=== PATIENT | female | born 1975 | race Two or more races ===

== ENCOUNTER 2020-05-17 23:53 | Emergency (ER) | payer OTHER, SELFPAY ==
[2020-05-18 00:25] VITALS: BP 170/80; PULSE 58; RESP 17; TEMP 36.8; O2SAT 98; BMI 33.5
--- NOTE | 2020-05-18 00:49 | ED.URI ---
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 She denies any chest pain or shortness of breath. No fever. No GI symptoms. MD elicited complaint: cough Onset (ago): hour(s) Severity: mild Able to tolerate fluids by mouth: Yes Relieving factors: nothing Treatments prior to arrival: none Related Data Previous Rx's Medication Instructions Recorded sertraline 50 mg tablet 50 mg PO DAILY 90 Days #90 tab 04/19/20 Allergies Allergy/AdvReac Type Severity Reaction Status Date / Time No Known Allergies Allergy Unverified 03/16/20 15:17 Review of Systems Review of Systems: Constitutional: No Weight loss, No Fever, No Chills, No Night Sweats, No Fatigue, No Malaise ENT/Mouth: No Hearing loss, No Ear Pain, No Nasal Congestion, No Sinus Pain, No Hoarseness Eyes: No Eye Pain, No Swelling, No Redness, No Foreign Body, No Discharge, No Vision Changes Cardiovascular: No Chest Pain, No SOB, No Dyspnea on Exertion, No Orthopnea, No Edema, No Palpitations Respiratory: + Cough, No Sputum, No Wheezing, No Smoke Exposure, No Dyspnea Musculoskeletal: No joint pain, No Myalgias, No Joint Swelling Skin: No Skin Lesions, No rash Neuro: No Weakness, No Numbness, No Paresthesias Heme/Lymph: No Bruising, No Bleeding,No Lymphadenopathy Endocrine: No Polyuria, No Polydipsia, No Temperature Intolerance Yes all other systems are reviewed and are negative [facility] Past Medical History Attestation statement: The following information was validated with the patient. Surgical History (Updated 05/01/20 @ 15:04 by Ly Stewart MA) History of loop electrical excision procedure (LEEP) Hx of cholecystectomy Hx of tubal ligation Family History Family History (Updated 05/01/20 @ 15:08 by Ly Stewart MA) Father Type 2 diabetes mellitus Mother Diabetes Social History Social History (Updated 05/02/20 @ 14:48 by Pedrito Guzman) Smoking Status: Former smoker Advance Directives: No Advance Directives Information Provided: No Physical Exam Vital Signs: Vital Signs: Last Vital Signs Temp 98.3 F 05/18/20 00:25 Pulse 58 05/18/20 00:25 Resp 17 05/18/20 00:25 BP 170/80 H 05/18/20 00:25 Pulse Ox 98 05/18/20 00:25 Body Mass Index 33.5 Reviewed Const: General: cooperative and healthy appearing; No acute distress or intoxicated appearing Nutritional Appearance: average body habitus Orientation/consciousness: patient oriented x3 HENMT: Head: Yes normal to inspection Ears: hearing grossly normal bilaterally Eyes: General: appearance normal, both eyes and all related structures Visual [place]: normal visual mancilla by confrontation Neck: Neck: Yes normal visual inspection Chest: Chest palpation & inspection: normal inspection of the chest Resp: Effort & Inspection: normal respiratory effort Cardio: Jugular venous distension: no JVD Skin: General skin exam: no rashes or lesions noted Neuro: General: patient oriented x3 Extrem: General: Yes normal to inspection Discharge Plan Discharge Clinical Impression: Bronchitis Patient Disposition: Home, Self-Care Instructions: Upper Respiratory Infection (ED), Acute Cough (ED) Additional Instructions: drink plenty of fluids Take medication prescribed Self-isolation Social distancing Your COVID test may take up to 3 days result we will call with results even if negative or positive Thank you Prescriptions: No Action sertraline 50 mg tablet 50 mg PO DAILY 90 Days Qty: 90 RF: 3 Referrals: Rubina Calix MD [Primary Care Provider] - 1 week ( phone visit) Stand Alone Forms: Work/School Release
== END 2020-05-18 01:51 | disposition home or self-care (01) ==
PROVIDERS: Nurse Practitioner Primary Care; Emergency Provider Student in an Organized Health Care Education/Training Program; PCP Internal Medicine
DX: J20.9 Acute bronchitis, unspecified (principal); R05 Cough; F41.1 Generalized anxiety disorder; F43.0 Acute stress reaction; Z20.828 Contact with and (suspected) exposure to other viral communicable diseases; Z87.891 Personal history of nicotine dependence
CPT/HCPCS: 99283; U0003

== ENCOUNTER 2020-06-17 07:37 | Outpatient (REF) | payer OTHER, SELFPAY ==
[2020-06-17 08:32] LABS: Alanine Aminotransferase 21 U/L (0-31); Albumin Level 4.4 g/dL (3.5-5.0); Alkaline Phosphatase 78 U/L (39-117); Anion Gap 9 (12-20); Aspartate Amino Transferase 22 U/L (5-31); Bilirubin Total 0.4 mg/dL (0.0-1.0); Blood Urea Nitrogen 12 mg/dL (9-16); Calcium 9.4 mg/dL (8.4-10.2); Carbon Dioxide 29 mmol/L (22-29); Chloride 103 mmol/L (96-108); Cholesterol 179 mg/dL; Estimated Glomerular Filt Rate > 60; Glucose Fasting 82 mg/dL (60-99); HDL Cholesterol 49 mg/dL; LDL Cholesterol Calculated 105 mg/dl; Sodium 137 mmol/L (135-145); Total Protein 7.3 g/dL (6.5-8.0); Triglycerides 128 mg/dL
[2020-06-17 08:51] LABS: Vitamin D 25-OH Total 36.6 ng/mL (>30)
== END 2020-06-17 07:38 | disposition home or self-care (01) ==
LOC: HO.LAB 07:37
PROVIDERS: PCP Internal Medicine; Visit Provider Internal Medicine
DX: E66.09 Other obesity due to excess calories (principal); E55.9 Vitamin D deficiency, unspecified
CPT/HCPCS: 80053; 80061; 82306

== ENCOUNTER 2020-06-29 13:02 | Outpatient (REF) | payer OTHER, SELFPAY ==
--- NOTE | 2020-06-29 | MM_ITS ---
EXAMINATION: MM SCREENING DIGITAL BREAST TOMOSYNTHESIS, BILATERAL CLINICAL INFORMATION: Screening. Asymptomatic. Family history breast cancer, aunt. The lifetime risk of breast cancer based on the Tyrer-Cuzick Model is 12%. COMPARISON: Mammography: 02/23/2019 (baseline); targeted left breast ultrasound 02/26/2019 TECHNIQUE: Digital breast tomosynthesis is performed in both the craniocaudal and mediolateral oblique views along with computer-aided detection (CAD). Synthesized 2D images are generated from the tomosynthesis. FINDINGS: There are scattered areas of fibroglandular density (ACR BI-RADS breast composition Category b). The right breast is unremarkable. There is no interval mass or architectural abnormality. Neither breast shows interval abnormal calcifications. There are regional benign appearing round coarse calcifications again present central left breast. The bilateral axilla and skin contours are unremarkable. The cyst medial left breast is slightly larger. There is also an adjacent asymmetric density in the posterior medial left breast, more conspicuous on current study. Patient will be recalled for additional imaging. MM/MM tomosynthesis screening BI IMPRESSION: 1. Left: Asymmetric density posterior medial left breast, more conspicuous on current study. Adjacent cyst slightly larger. 2. Right: No mammographic evidence of malignancy. ASSESSMENT: BI-RADS 0: Incomplete - Need Additional Imaging Evaluation RECOMMENDATION: 1. Additional views of the left breast (rolled CC x2-medial; spot MLO). 2. Targeted ultrasound left breast. 3. Radiology department staff will contact the patient for additional imaging. This patient's information was entered into a reminder system with a target due date for their next mammogram.
== END 2020-06-29 13:03 | disposition home or self-care (01) ==
LOC: HO.MAMMO 13:02
PROVIDERS: PCP Internal Medicine; Visit Provider Internal Medicine
DX: Z12.31 Encounter for screening mammogram for malignant neoplasm of breast (principal)
CPT/HCPCS: 77063; 77067

== ENCOUNTER → 2020-07-13 07:59 | Outpatient (BNVA) | payer OTHER, SELFPAY | PROVIDERS: PCP Internal Medicine; Visit Provider Internal Medicine | DX: Z76.89 Persons encountering health services in other specified circumstances (principal) ==

== ENCOUNTER 2020-07-20 15:01 | Outpatient (REF) | payer OTHER, SELFPAY ==
--- NOTE | 2020-07-20 15:07 | US_ITS ---
EXAMINATION: US THYROID CLINICAL INFORMATION: Nontoxic multinodular goiter. Status post partial thyroidectomy. COMPARISON: None TECHNIQUE: Linear transducer peralta-scale and color Doppler examination with attention to the region of the thyroid. FINDINGS: SIZE: Measurements of the thyroid lobes and nodules are given in sagittal, anteroposterior and transverse dimensions respectively. Right Thyroid Lobe: 5.0 x 1.2 x 1.5 cm, volume 4.5 mL. Previous measurements 4.8 x 1.3 x 1.1 and 3.6 mL volume. Parenchyma: The gland echotexture is homogeneous. Thyroid vascularity is normal. Left Thyroid Lobe: 2.7 x 0.7 x 2.0 cm, volume 1.8 mL. Parenchyma: The gland echotexture is homogeneous. Thyroid vascularity is normal. Previously measured 9.8 x 4.3 x 7.4 cm and volume 1.6 mL. Isthmus: 0.3 cm in maximum AP dimension. Previously measured 0.5 cm. RIGHT THYROID LOBE: Solitary nodule midpole measuring 0.8 x 0.5 x 0.6 cm. It is hypoechoic, smoothly marginated with hypoechoic rind and peripheral flow. ISTHMUS: No nodules. LEFT THYROID LOBE: No nodules. CERVICAL LYMPH NODE EVALUATION: Right neck: 1. Level 1B: Lymph node measures 1.1 x 0.6 x 1.2 cm. It has normal echotexture. 2. Level 1B: Lymph node measures 0.9 x 0.6 x 0.8 cm. It has normal echotexture. 3. Level 1B: Lymph node measures 2.0 x 0.8 x 1.4 cm. There is normal echotexture. 4. Level 1A: Lymph node measures 0.7 x 0.4 x 0.7 cm. It has normal echotexture. Left neck: 1. Level 1B: Lymph node measures 1.8 x 0.9 x 1.0 cm. It has a normal echotexture. 2. Level 1B: Lymph node measures 1.1 x 0.4 x 0.7 cm. It has a normal echotexture. 3. Level 1B: Lymph node measures 1.3 x 0.4 x 1.2 cm. It has a normal echotexture. 4. Level 5A: Lymph node measures 0.6 x 0.4 x 0.7 cm. It has a normal echotexture. US/US thyroid IMPRESSION: Solitary nodule right lobe, subcentimeter and nonsuspicious. No additional nodules seen. Thyroid gland size within normal limits. No abnormal neck lymph nodes seen.
== END 2020-07-20 15:02 | disposition home or self-care (01) ==
LOC: HO.US 15:01
PROVIDERS: Visit Provider Internal Medicine
DX: E04.2 Nontoxic multinodular goiter (principal)
CPT/HCPCS: 76536

== ENCOUNTER → 2020-09-14 14:47 | Outpatient (BNVA) | payer OTHER, SELFPAY | PROVIDERS: PCP Internal Medicine; Visit Provider Internal Medicine ==

== ENCOUNTER 2020-09-18 12:52 | Outpatient (REF) | payer OTHER, SELFPAY ==
--- NOTE | ~2020-09-18 | MM_ITS ---
EXAMINATION: MM DIAGNOSTIC DIGITAL BREAST TOMOSYNTHESIS, LEFT US DIAGNOSTIC ULTRASOUND BREAST, LEFT CLINICAL INFORMATION: Recall from screening for asymmetric density posterior medial breast questionably more conspicuous when compared with baseline. History fibrocystic change. COMPARISON: Mammography: Mammography 06/29/2020, 02/23/2019, ultrasound left breast 02/26/2019. TECHNIQUE: Digital breast tomosynthesis is performed. 2D images are generated from the tomosynthesis. The following views are obtained: 3-D rolled CC x2, 3-D spot CC, 3-D spot MLO x2. Ultrasound left breast is targeted to the upper inner breast. Grayscale imaging and color Doppler are performed without and with harmonics. FINDINGS: There are scattered areas of fibroglandular density (ACR BI-RADS breast composition Category b). The additional views show asymmetric fibroglandular densities posterior medial breast similar to the prior studies. There is no interval new or developing density or architectural abnormality. Ultrasound demonstrates 2 simple cysts in the area of interest, the larger 0.8 x 0.5 cm and the smaller 0.6 x 0.5 cm. These correspond to the fibroglandular densities noted on mammography. There is no solid mass or architectural abnormality or focal duct ectasia. No abnormal color flow. Results are discussed with the patient at time of visit. MM/MM tomosynthesis added views L IMPRESSION: Additional views left breast show no significant changes. Targeted ultrasound shows 2 adjacent simple cyst, largest 0.8 cm. ASSESSMENT: BI-RADS 2: Benign RECOMMENDATION: Routine annual mammography screening. This patient's information was entered into a reminder system with a target due date for their next mammogram.
== END 2020-09-18 12:53 | disposition home or self-care (01) ==
LOC: HO.MAMMO 12:52
PROVIDERS: Visit Provider Internal Medicine
DX: R92.2 Inconclusive mammogram (principal)
CPT/HCPCS: 76642; 77061; 77065

== ENCOUNTER 2021-02-17 15:02 | Emergency (ER) | payer OTHER, SELFPAY ==
--- NOTE | ~2021-02-17 | US_ITS ---
EXAMINATION: ULTRASOUND OF THE PELVIS CLINICAL INFORMATION: Abnormal bleeding and pain. COMPARISON: None TECHNIQUE: Transabdominal and transvaginal pelvic ultrasound. A transvaginal study was performed in addition to the transabdominal study which did not yield an adequate examination of the uterus and ovaries due to superimposed distended gas-filled loops of bowel. FINDINGS: Uterus: The uterus is retroverted and retroflexed and normal in size, measuring 9.1 x 5.4 x 4.7 cm. There is a 1.4 x 1.4 x 1.0 cm hypoechoic mass in the right side of the uterine body, consistent with a small uterine fibroid. The endometrial stripe is diffusely echogenic and thickened, measuring 1.8 cm in thickness. Several tiny internal cystic spaces are seen, likely representing dilated endometrial glands. No focal myometrial mass is seen. The cervical length is qualitatively within normal limits. Small nabothian cysts are seen within the cervix. Ovaries: The ovaries bilaterally are visualized and appear normal, with the right ovary measuring 4.0 x 3.6 x 3.0 cm (22.6 mL volume) and the left ovary measuring 3.0 x 1.6 x 1.8 cm (4.5 mL volume). There is a lobulated hypoechoic cystic mass with low-level internal echoes in the right adnexa, measuring 5.5 x 2.8 x 2.3 cm, partially obscured by adjacent bowel gas. This may represent a complex cystic mass in the right ovary versus an adjacent hydrosalpinx. Normal arterial and venous flow to the right ovary is documented with color Doppler and spectral Doppler. The left ovary appears unremarkable with small follicles noted. With color Doppler imaging, normal flow is seen though no spectral Doppler assessment was made. Other: No significant free fluid collection seen. US/US pelvic and transvaginal IMPRESSION: 1. Diffusely echogenic and thickened endometrium is seen with multiple small cystic spaces, likely representing endometrial hyperplasia/neoplasia with dilated endometrial glands. Close clinical correlation and EQUIPMENT CLEANER follow-up is recommended for further evaluation and management. 2. Incompletely characterized and visualized complex cystic collection in the right adnexa is seen, possibly a complex ovarian cystic mass versus a hydrosalpinx. Would recommend reassessment with transvaginal pelvic ultrasound in 4-6 weeks and if findings persist and remain incompletely characterized, further evaluation with MRI scan of the pelvis. 3. Left ovary unremarkable. 4. Small uterine fibroid.
[2021-02-17 15:18] VITALS: BP 147/82; PULSE 70; RESP 16; TEMP 36.6; O2SAT 98; BMI 34.3
[2021-02-17 15:34] VITALS: BP 150/85; PULSE 75; RESP 15; O2SAT 98
--- NOTE | 2021-02-17 16:12 | ED_ITS ---
HPI - Female Genitourinary General Chief complaint: Vaginal Bleeding Stated complaint: vag bleeding Time Seen by Provider: 02/17/21 16:11 Source: patient Mode of arrival: ambulatory Limitations: no limitations History of Present Illness HPI Narrative: 45-year-old female presents with 2 weeks of vaginal bleeding with large clots and dizziness States this is an abnormal cycle for her, she missed her period last month. She does not report any vaginal pain or risk for sexually transmitted infection. She does not report any chest pain or pressure, palpitations, shortness of breath, abdominal pain, abdominal distention, dysuria, nausea, vomiting, diarrhea, constipation, or edema. MD elicited complaint: vaginal bleeding Onset (ago): week(s) (2) Location of symptoms: vaginal Severity: moderate Vaginal bleeding: moderate, heavy, dark red and clots Relieving factors: none Treatment prior to arrival: none Sexual activity: Yes Patient : No Related Data Previous Rx's Medication Instructions Recorded sertraline 50 mg tablet 50 mg PO DAILY 90 Days #90 tab 04/19/20 albuterol sulfate 90 mcg/actuation 2 puff INHALATION Q4-6H PRN #18 g 05/18/20 aerosol inhaler meclizine 25 mg tablet 25 mg PO TID #90 tab 08/11/20 cholecalciferol (vitamin D3) 50 50 mcg PO DAILY 30 Days #30 tab 01/03/21 mcg (2,000 unit) tablet Allergies Allergy/AdvReac Type Severity Reaction Status Date / Time No Known Allergies Allergy Verified 09/14/20 16:01 Review of Systems Review of Systems: Constitutional: Positive dizziness, No Fever, No Chills ENT/Mouth: No sore throat, No Rhinorrhea Eyes: No Eye Pain, No Redness Cardiovascular: No Chest Pain, No SOB Respiratory: No Cough, No Sputum, No Wheezing Gastrointestinal: No Nausea, No Vomiting, No Diarrhea, no abdominal pain, Genitourinary: positive irregular bleeding, No Dysuria, No Urinary Frequency, no pelvic pain Musculoskeletal: No Myalgias Skin: No rash Neuro: No Weakness, No Headache Psych: No Anxiety/Panic, No Depression Heme/Lymph: No bruising, No Lymphadenopathy Endocrine: No Polyuria, No Polydipsia Yes all other systems are reviewed and are negative [facility] Past Medical History Attestation statement: The following information was validated with the patient. Source: old records reviewed Medical History Asthma Bronchiolitis Depression Family history of thyroid cancer Hypovitaminosis D Multinodular goiter Obesity Vertigo Vitamin D deficiency Surgical History History of loop electrical excision procedure (LEEP) History of thyroid surgery Hx of cholecystectomy Hx of mammogram Hx of tubal ligation Family History Family History Father Type 2 diabetes mellitus Mother Diabetes Daughter Thyroid cancer Social History Social History Alcohol intake: never Patient Tobacco Use Status: Never used Tobacco Physical Exam Vital Signs: Vital Signs: Last Vital Signs Temp 98.5 F 02/17/21 17:32 Pulse 75 02/17/21 19:16 Resp 16 02/17/21 19:16 BP 150/78 H 02/17/21 19:16 Pulse Ox 99 02/17/21 19:16 Body Mass Index 34.3 Appearance: Alert. Oriented X3. No acute distress. Eyes: Pupils equal, round and reactive to light. ENT: Pharynx normal. Neck: Normal inspection. Neck supple. CVS: Normal heart rate and rhythm. Pulses normal. Respiratory: No respiratory distress. Breath sounds normal. Abdomen: Soft and nontender. Skin: Skin warm and dry. Normal skin color. Normal skin turgor. Extremities: No lower extremity edema. Neuro: No motor deficit. No sensory deficit. : External Female Exam: normal external appearance Speculum Exam - Vagina: normal appearance of the vagina Speculum Exam - Cervix: Other cervical findings present (3 mm in diameter of salmon pink tissue in center of cervical os) Bimanual exam- vagina & uterus: normal bimanual exam Bimanual Exam- Adnexa, other: normal adnexae Course Course Course Narrative: 45-year-old female presents with 2 weeks of abnormal vaginal bleeding with large clots, accompanied by dizziness. Does not report any vaginal or pelvic pain. Did report missing her period last month but did not believe that she is or at risk for sexually transmitted infections. 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 There is a approximately 3 mm salmon pink tissue in the center of the cervical os which could possibly be secondary to LEEP procedure. Will order pelvic ultrasound this time. 6:28 p.m. tiger text discussion with Dr. Echevarria regarding transvaginal ultrasound findings. Ultrasound results discussed with patient, patient will follow-up with OBGYN in the office and will call for an appointment tomorrow. Patient verbalized understanding of and agrees to plan of care. Consultations Consultation #1: Wale Time: 18:29 MDM - Female Genitourinary Differential Diagnosis Differential diagnosis: Likely ovarian cyst, ruptured ovarian cyst and cystitis Medical Records Attestation: I reviewed the patient's medical records. Lab Data Attestation: I reviewed the patient's lab results. Result diagrams: 02/17/21 17:32 02/17/21 17:32 Labs: Lab Results 02/17/21 02/17/21 02/17/21 Range/Units 17:31 17:32 17:32 WBC 8.2 (4.8-10.8) X10*3/uL RBC 4.94 (4.20-5.50) X10*6/uL Hgb 12.0 (12.0-16.0) g/dl Hct 38.8 (37-47) % MCV 78.5 L (80-98) fL MCH 24.3 L (27.0-33.0) pg MCHC 30.9 L (31.0-35.0) g/dl RDW 15.7 (11.0-16.0) % Plt Count 329 (160-400) X10*3/uL MPV 10.0 (9.4-12.3) fL Immature Gran % (Auto) 0.4 (0.0-0.4) % Neut % (Auto) 56.8 (45-73) % Lymph % (Auto) 33.3 (20-40) % [place] % (Auto) 5.1 (2-11) % Eos % (Auto) 3.8 (0-4) % Baso % (Auto) 0.6 (0-2) % Lymph # (Auto) 2.7 (1.2-4.9) X10*3/uL [place] # (Auto) 0.4 (0.1-1.2) X10*3/uL Eos # (Auto) 0.3 (0.0-0.4) X10*3/uL Baso # (Auto) 0.1 (0.0-0.2) X10*3/uL Abs Immat Gran (auto) 0.03 (0.00-0.03) X10*3/uL Absolute Neuts (auto) 4.7 (2.0-8.3) X10*3/uL Absolute Nucleated RBC 0.000 (0.0-0.012) X10*3/uL Nucleated RBC % (auto) 0.0 (0.0-0.2) /100WBC Sodium 139 (135-145) mmol/L Potassium 4.5 (3.3-5.1) mmol/L Chloride 107 (96-108) mmol/L Carbon Dioxide 24 (22-29) mmol/L Anion Gap 13 (12-20) BUN 17 H (9-16) mg/dL Creatinine 0.70 (0.5-1.4) mg/dL Estim Creat Clear Calc 113.1 Estimated GFR > 60 Random Glucose 97 (60-115) mg/dL Calcium 9.1 (8.4-10.2) mg/dL Urine Color YELLOW Urine Appearance HAZY Urine pH 5.5 (5.0-8.0) Ur Specific [place] 1.010 (1.005-1.025) Urine Protein NEG (NEG-TRACE) MG/DL Urine Glucose (UA) NEG (NEG) MG/DL Urine Ketones NEG (NEG) MG/DL Urine Blood 3+ H (NEG) Urine Nitrite NEG (NEG) Ur Leukocyte Esterase NEG (NEG) Urine RBC 5-9 H (0) /HPF Urine WBC 0-2 (0-4) /HPF Ur Squamous Epith Cells TRACE /LPF Amorphous Sediment 3+ /LPF Urine Bacteria TRACE /LPF Urine Test (NEGATIVE) 02/17/21 Range/Units 17:32 WBC (4.8-10.8) X10*3/uL RBC (4.20-5.50) X10*6/uL Hgb (12.0-16.0) g/dl Hct (37-47) % MCV (80-98) fL MCH (27.0-33.0) pg MCHC (31.0-35.0) g/dl RDW (11.0-16.0) % Plt Count (160-400) X10*3/uL MPV (9.4-12.3) fL Immature Gran % (Auto) (0.0-0.4) % Neut % (Auto) (45-73) % Lymph % (Auto) (20-40) % [place] % (Auto) (2-11) % Eos % (Auto) (0-4) % Baso % (Auto) (0-2) % Lymph # (Auto) (1.2-4.9) X10*3/uL [place] # (Auto) (0.1-1.2) X10*3/uL Eos # (Auto) (0.0-0.4) X10*3/uL Baso # (Auto) (0.0-0.2) X10*3/uL Abs Immat Gran (auto) (0.00-0.03) X10*3/uL Absolute Neuts (auto) (2.0-8.3) X10*3/uL Absolute Nucleated RBC (0.0-0.012) X10*3/uL Nucleated RBC % (auto) (0.0-0.2) /100WBC Sodium (135-145) mmol/L Potassium (3.3-5.1) mmol/L Chloride (96-108) mmol/L Carbon Dioxide (22-29) mmol/L Anion Gap (12-20) BUN (9-16) mg/dL Creatinine (0.5-1.4) mg/dL Estim Creat Clear Calc Estimated GFR Random Glucose (60-115) mg/dL Calcium (8.4-10.2) mg/dL Urine Color Urine Appearance Urine pH (5.0-8.0) Ur Specific [place] (1.005-1.025) Urine Protein (NEG-TRACE) MG/DL Urine Glucose (UA) (NEG) MG/DL Urine Ketones (NEG) MG/DL Urine Blood (NEG) Urine Nitrite (NEG) Ur Leukocyte Esterase (NEG) Urine RBC (0) /HPF Urine WBC (0-4) /HPF Ur Squamous Epith Cells /LPF Amorphous Sediment /LPF Urine Bacteria /LPF Urine Test NEGATIVE (NEGATIVE) Imaging Data Transvaginal ultrasound: Attestation: I personally reviewed and interpreted this imaging study as follows: Radiologist's impression: EXAMINATION: ULTRASOUND OF THE PELVIS CLINICAL INFORMATION: Abnormal bleeding and pain. COMPARISON: None TECHNIQUE: Transabdominal and transvaginal pelvic ultrasound. A transvaginal study was performed in addition to the transabdominal study which did not yield an adequate examination of the uterus and ovaries due to superimposed distended gas-filled loops of bowel. FINDINGS: Uterus: The uterus is retroverted and retroflexed and normal in size, measuring 9.1 x 5.4 x 4.7 cm. There is a 1.4 x 1.4 x 1.0 cm hypoechoic mass in the right side of the uterine body, consistent with a small uterine fibroid. The endometrial stripe is diffusely echogenic and thickened, measuring 1.8 cm in thickness. Several tiny internal cystic spaces are seen, likely representing dilated endometrial glands. No focal myometrial mass is seen. The cervical length is qualitatively within normal limits. Small nabothian cysts are seen within the cervix. Ovaries: The ovaries bilaterally are visualized and appear normal, with the right ovary measuring 4.0 x 3.6 x 3.0 cm (22.6 mL volume) and the left ovary measuring 3.0 x 1.6 x 1.8 cm (4.5 mL volume). There is a lobulated hypoechoic cystic mass with low-level internal echoes in the right adnexa, measuring 5.5 x 2.8 x 2.3 cm, partially obscured by adjacent bowel gas. This may represent a complex cystic mass in the right ovary versus an adjacent hydrosalpinx. Normal arterial and venous flow to the right ovary is documented with color Doppler and spectral Doppler. The left ovary appears unremarkable with small follicles noted. With color Doppler imaging, normal flow is seen though no spectral Doppler assessment was made. Other: No significant free fluid collection seen. US/US pelvic and transvaginal IMPRESSION: ? 1. Diffusely echogenic and thickened endometrium is seen with multiple small cystic spaces, likely representing endometrial hyperplasia/neoplasia with dilated endometrial glands. Close clinical correlation and [employer] follow-up is recommended for further evaluation and management. 2. Incompletely characterized and visualized complex cystic collection in the right adnexa is seen, possibly a complex ovarian cystic mass versus a hydrosalpinx. Would recommend reassessment with transvaginal pelvic ultrasound in 4-6 weeks and if findings persist and remain incompletely characterized, further evaluation with MRI scan of the pelvis. 3. Left ovary unremarkable. 4. Small uterine fibroid. Discharge Plan Discharge Clinical Impression: Vaginal bleeding, Complex cyst of uterine adnexa, Endometrial hyperplasia Patient Disposition: Home, Self-Care Instructions: Dysfunctional Uterine Bleeding (ED), Ovarian Cyst (ED) Additional Instructions: You were evaluated for at abnormal vaginal bleeding. I did discuss your pelvic ultrasound findings in detail with you. Please follow-up with Dr Echevarria tomorrow. Please call and request an appointment. I did discuss your case with him and he reviewed your ultrasound results. If heavy bleeding persists, or you have any concerning findings please return to the emergency department immediately. Thank you for choosing this emergency department for evaluation. Please follow-up with primary care physician as needed. Return to the emergency dep artment for any new, concerning, or worsening symptoms. Prescriptions: No Action sertraline 50 mg tablet 50 mg PO DAILY 90 Days Qty: 90 RF: 3 meclizine 25 mg tablet 25 mg PO TID Qty: 90 RF: 0 cholecalciferol (vitamin D3) 50 mcg (2,000 unit) tablet 50 mcg PO DAILY 30 Days Qty: 30 RF: 11 albuterol sulfate 90 mcg/actuation HFA aerosol inhaler 2 puff inhalation Q4-6H PRN (Reason: shortness of breath or wheezing) Qty: 18 RF: 1 Referrals: Josue Echevarria MD [Physician] - 2 days (Abnormal pelvic ultrasound, abnormal vaginal bleeding) Interventions: ED Discharge Assessment Last Done: 02/17/21 19:17 Discharge Date/Time: 02/17/21 19:18
[2021-02-17 17:32] VITALS: BP 125/77; PULSE 67; RESP 12; TEMP 36.9; O2SAT 97
[2021-02-17 17:39] LABS: MANUAL DIFF FLAG NO
[2021-02-17 17:43] LABS: Glucose Urine UA NEG (NEG); Leukocyte Esterase Urine NEG (NEG); Nitrite Urine NEG (NEG); PH 5.5 (5.0-8.0); UACC Culture Trigger NO; Urine Blood 3+ (NEG); Urine Ketones NEG (NEG); Urine Protein NEG (NEG-TRACE)
[2021-02-17 17:45] LABS: Appearance Urine HAZY; Color Urine YELLOW
[2021-02-17 17:48] LABS: Basophils Absolute Auto 0.1 X10*3/uL (0.0-0.2); Basophils Percent Auto 0.6 % (0-2); Eosinophils Absolute Auto 0.3 X10*3/uL (0.0-0.4); Eosinophils Percent Auto 3.8 % (0-4); Hematocrit 38.8 % (37-47); Imm Gran Abs Auto 0.03 X10*3/uL (0.00-0.03); Imm Gran Pct Auto 0.4 % (0.0-0.4); Lymphocytes Absolute Auto 2.7 X10*3/uL (1.2-4.9); Lymphocytes Percent Auto 33.3 % (20-40); Mean Corpuscular HGB Conc 30.9 g/dl (31.0-35.0); Mean Corpuscular Hemoglobin 24.3 pg (27.0-33.0); Mean Corpuscular Volume 78.5 fL (80-98); Monocytes Absolute Auto 0.4 X10*3/uL (0.1-1.2); Monocytes Percent Auto 5.1 % (2-11); Neutrophils Absolute Auto 4.7 X10*3/uL (2.0-8.3); Neutrophils Percent Auto 56.8 % (45-73); Platelet Count 329 X10*3/uL (160-400); Red Blood Count 4.94 X10*6/uL (4.20-5.50); Red Cell Distribution Width 15.7 % (11.0-16.0); White Blood Count 8.2 X10*3/uL (4.8-10.8)
[2021-02-17 17:51] LABS: UPreg QC Valid YES; Urine Pregnancy NEGATIVE (NEGATIVE)
[2021-02-17 17:51] LABS: Amorphous Sediment Urine 3+ /LPF; Bacteria Urine TRACE /LPF; Squamous Epithelial Cell Urine TRACE /LPF; WBC Urine 0-2 /HPF (0-4)
[2021-02-17 18:02] LABS: Anion Gap 13 (12-20); Blood Urea Nitrogen 17 mg/dL (9-16); Calcium 9.1 mg/dL (8.4-10.2); Carbon Dioxide 24 mmol/L (22-29); Chloride 107 mmol/L (96-108); Creatinine Clr Calc Pharmacy 113.1; Estimated Glomerular Filt Rate > 60; Glucose Random 97 mg/dL (60-115); Potassium 4.5 mmol/L (3.3-5.1); Sodium 139 mmol/L (135-145)
--- NOTE | 2021-02-17 18:35 | PM.GYNCN ---
CREATIVE SERVICES SPECIALIST - CN: HPI Data of Consult Consult date: 02/17/21 Primary Care Provider: Rubina Loaiza MD Consult Narrative Narrative: I was consulted regarding Fina Singh who is a 45 year old female who presented to the emergency room complaining of a 2 week history of vaginal bleeding. Urine test, CBC within normal cc:: CC: WELT RANDER - Review of Systems Review of Systems ROS Unobtainable: All systems reviewed & are unremarkable except as noted in HPI and below Cardiovascular: Denies Palpatations, Loss of consciousness or Chest pain Respiratory: Denies Cough, Wheezing or Shortness of breath Musculoskeletal: Denies Low back pain Gastrointestinal: Denies Heartburn, Constipation, Diarrhea, Nausea or Vomiting Genitourinary: Denies Pain with urination, Burning with urination or Urinary frequency Neurological: Denies Migranes Psychological: Denies Depression OB PMFSH Past Medical History Medical History Asthma Bronchiolitis Depression Family history of thyroid cancer Hypovitaminosis D Multinodular goiter Obesity Vertigo Vitamin D deficiency Family History Family History Father Type 2 diabetes mellitus Mother Diabetes Daughter Thyroid cancer Surgical History Surgical History History of loop electrical excision procedure (LEEP) History of thyroid surgery Hx of cholecystectomy Hx of mammogram Hx of tubal ligation Social History Social History Alcohol intake: never Patient Tobacco Use Status: Never used Tobacco Use of substances other than those prescribed or required for medical reasons: No Advance Directives: No Advance Directives Information Provided: No Patient : No Meds Allergies Allergy/AdvReac Type Severity Reaction Status Date / Time No Known Allergies Allergy Verified 09/14/20 16:01 CREATIVE SERVICES SPECIALIST Physical Exam Vitals Vital signs: Temp Pulse Resp BP Pulse Ox 98.5 F 67 12 125/77 97 02/17/21 17:32 02/17/21 17:32 02/17/21 17:32 02/17/21 17:32 02/17/21 17:32 Body Mass Index 34.3 Constitutional General Appearance: Healthy appearing, Well-nourished and Well-developed Psychiatric Mood and Affect: active and alert, normal mood and normal affect Skin Appearance: No rashes and No lesions Lungs Respiratory Effort: No intercostal retractions Auscultation: Clear to auscultation Cardiovascular Auscultation: RRR Abdomen Auscultation/Inspection/Palpation: Normal bowel sounds, Soft, Non-distended and No tenderness Female Genitalia (Pelvic) Exam: Deferred Additional Comments: Exam reported by Bertha Dwyer NP in the emergency room stable vital signs, pelvic exam showing dark blood in the vault no active bleeding no vaginal blood clots no tenderness to palpation at cervix or adnexa 3 cm area protruding out of the cervix, cervical cancer versus polyp versus myoma CREATIVE SERVICES SPECIALIST - Results Labs CBC & Chem 7: 02/17/21 17:32 02/17/21 17:32 Labs: Short CBC 02/17/21 Range/Units 17:32 WBC 8.2 (4.8-10.8) X10*3/uL Hgb 12.0 (12.0-16.0) g/dl Hct 38.8 (37-47) % Plt Count 329 (160-400) X10*3/uL BMP 02/17/21 17:32 Sodium 139 Potassium 4.5 Chloride 107 Carbon Dioxide 24 BUN 17 H Creatinine 0.70 Calcium 9.1 Urine 02/17/21 02/17/21 Range/Units 17:31 17:32 Urine Color YELLOW Urine Appearance HAZY Urine pH 5.5 (5.0-8.0) Ur Specific [place] 1.010 (1.005-1.025) Urine Protein NEG (NEG-TRACE) MG/DL Urine Glucose (UA) NEG (NEG) MG/DL Urine Test NEGATIVE (NEGATIVE) Assessment and Plan (1) Menorrhagia: Status: Acute Since pelvic exam showed a cervical mass differential diagnosis includes but not limited to cervical polyp, endocervical/cervical myoma versus cervical malignancy; In addition, the ultrasound showed that the endometrium showed multiple cystic spaces, therefore the patient needs endometrial sampling to rule out endometrial malignancy hyperplasia or polyps, Furthermore a complex cystic collection was seen by ultrasound on the right adnexa possible complex ovarian cyst versus hydrosalpinx, since there is no tenderness on pelvic exam, and the patient afebrile with no leukocytosis it's unlikely to be PID, Last but not least ultrasound showed a small myoma. Recommended: 1-short term follow-up in the office for evaluation of the cervical mass and biopsy to identify the etiology of the cervical protruding mass and treat accordingly 2-Endometrial sampling to rule out endometrial hyperplasia malignancy or atypia, 3-CA 125 and short-term follow-up ultrasound to follow-up on the complex adnexal mass versus hydrosalpinx. 4-instructions to be given to patient to come back to emergency room in case of heavy vaginal bleeding Check the results and treat accordingly in addition to managing menometrorrhagia. I was consulted on the phone regarding this patient, I did not see nor examine her
[2021-02-17 19:16] VITALS: BP 150/78; PULSE 75; RESP 16; O2SAT 99
== END 2021-02-17 19:18 | disposition home or self-care (01) ==
PROVIDERS: Nurse Practitioner Family; Emergency Provider Emergency Medicine; PCP Internal Medicine
DX: N92.0 Excessive and frequent menstruation with regular cycle (principal); N83.8 Other noninflammatory disorders of ovary, fallopian tube and broad ligament; N85.01 Benign endometrial hyperplasia
CPT/HCPCS: 36415; 76830; 76856; 80048; 81001; 81025; 85025; 99284

== ENCOUNTER 2021-02-28 14:57 | Outpatient (REF) | payer OTHER, SELFPAY ==
[2021-02-28 17:48] LABS: HCG Quantitative < 2 mIU/mL; TSH reflex Free T4 1.82 uIU/mL (0.32-4.0)
[2021-03-01 02:56] LABS: CT PCR NOT DETECTED (Not Detect.); NG PCR NOT DETECTED (Not Detect.)
[2021-03-01 09:26] LABS: CA-125 26 U/mL (<35)
[2021-03-06 18:37] LABS: HPV mRNA E6/E7 rflx Not Detected (Not Detected)
== END 2021-02-28 14:58 | disposition home or self-care (01) ==
LOC: HO.LAB 14:57
PROVIDERS: PCP Internal Medicine; Visit Provider Obstetrics & Gynecology
DX: Z01.411 Encounter for gynecological examination (general) (routine) with abnormal findings (principal); Z11.51 Encounter for screening for human papillomavirus (HPV); Z11.3 Encounter for screening for infections with a predominantly sexual mode of transmission; N84.1 Polyp of cervix uteri; N92.1 Excessive and frequent menstruation with irregular cycle; N88.9 Noninflammatory disorder of cervix uteri, unspecified; N83.299 Other ovarian cyst, unspecified side; N93.9 Abnormal uterine and vaginal bleeding, unspecified
CPT/HCPCS: 36415; 84443; 84702; 86304; 87491; 87591; 87624; 88142; 88305

== ENCOUNTER 2021-03-27 15:03 | Outpatient (REF) | payer OTHER, SELFPAY | END 2021-03-27 15:04 | disposition home or self-care (01) | LOC: HO.LAB 15:03 | PROVIDERS: PCP Internal Medicine; Visit Provider Obstetrics & Gynecology | DX: N92.1 Excessive and frequent menstruation with irregular cycle (principal) | CPT/HCPCS: 58100; 88305 ==

== ENCOUNTER → 2021-04-11 14:58 | Outpatient (BNVA) | payer OTHER, SELFPAY | PROVIDERS: PCP Internal Medicine; Visit Provider Obstetrics & Gynecology ==

== ENCOUNTER 2021-05-30 11:02 | Outpatient (REF) | payer OTHER, SELFPAY ==
--- NOTE | ~2021-05-30 | US_ITS ---
EXAMINATION: US PELVIS CLINICAL INFORMATION: Ovarian cyst. COMPARISON: None TECHNIQUE: Ultrasound of the pelvis is performed using both transabdominal and transvaginal transducers along with Doppler. Transvaginal imaging is performed due to inadequate visualization transabdominally. FINDINGS: Uterus: The uterus is retroverted and retroflexed and measures 9.8 cm in length, 4.9 cm AP and 6.0 cm in transverse dimension. The endometrium is heterogeneous with double wall endometrial thickness measuring 2.0 cm. The uterus is smooth in contour and has normal myometrial echogenicity. There is a hypoechoic lesion in the right body of the uterus measuring 1.9 x 1.7 x 1.5 cm. Previously right fibroid measured 1.9 x 1.4 x 1.0 cm. There are small nabothian cysts seen in the cervix. Adnexa: Both ovaries are visualized. There is normal color flow to the adnexa. There is no ovarian torsion. There is no pelvic ascites or fluid collection. Right ovary measures 2.7 x 2.1 x 1.8 cm and volume 5.3 mL. Previously right ovary measures 4.0 x 3.6 x 3.0 cm. Left ovary measures 4.8 x 3.0 x 2.9 CM and volume 21.8 mL. There is an anechoic cyst measuring 4.1 x 2.5 x 2.9 cm. There are small nabothian cysts. US/US pelvic and transvaginal IMPRESSION: Small fibroid along the right body of uterus. The uterus is retroverted and retroflexed. Small nabothian cysts seen in the cervix. Simple left ovarian cyst measuring 4.1 cm. The right ovary is unremarkable.
== END 2021-05-30 11:03 | disposition home or self-care (01) ==
LOC: HO.US 11:02
PROVIDERS: PCP Internal Medicine; Visit Provider Obstetrics & Gynecology
DX: N83.299 Other ovarian cyst, unspecified side (principal)
CPT/HCPCS: 76830; 76856

== ENCOUNTER → 2021-06-13 15:13 | Outpatient (BNVA) | payer OTHER, SELFPAY | PROVIDERS: PCP Internal Medicine; Visit Provider Obstetrics & Gynecology ==

== ENCOUNTER → 2021-06-27 09:04 | Outpatient (BNVA) | payer OTHER, SELFPAY | PROVIDERS: PCP Internal Medicine; Visit Provider Obstetrics & Gynecology ==

== ENCOUNTER → 2021-08-27 11:18 | Outpatient (BNVA) | payer OTHER, SELFPAY | PROVIDERS: PCP Internal Medicine; Visit Provider Obstetrics & Gynecology ==

== ENCOUNTER 2021-11-28 01:07 | Emergency (ER) | payer OTHER, SELFPAY ==
[2021-11-28 01:20] VITALS: BP 165/77; PULSE 69; RESP 20; TEMP 36.4; O2SAT 99; BMI 81.3
[2021-11-28 02:16] LABS: COVID-19 Test Negative (Negative); IDNOW Serial# 16C4AD1C; Influenza A Negative (Negative); Influenza B2 Negative (Negative)
[2021-11-28 05:57] VITALS: BP 148/80; PULSE 66; RESP 14; TEMP 37; O2SAT 99
--- NOTE | 2021-11-28 06:28 | ED.GENADULT ---
HPI - General Adult General Chief complaint: General Medical Stated complaint: Bronchitis, negative @home COVID test Time Seen by Provider: 11/28/21 06:28 Source: patient Mode of arrival: ambulatory Limitations: no limitations History of Present Illness HPI narrative: patient with 2 days of shortness of breath and wheezing. Patient felt this was more related to allergies than her having a cold. She felt her wheezing was getting worse. Patient takes lucio for her allergies. Onset (ago): day(s) Severity: mild Relieving factors: none Exacerbating factors: other (coughing) Associated symptoms: cough and shortness of breath Related Data Home Medications Medication Instructions Recorded Confirmed levonorgestrel 20 mcg/24 hours (7 INTRAUTERINE 08/27/21 yrs) 52 mg intrauterine device (Mirena) Previous Rx's Medication Instructions Recorded albuterol sulfate 90 mcg/actuation 2 puff INHALATION Q4-6H PRN #18 g 05/18/20 aerosol inhaler meclizine 25 mg tablet 25 mg PO TID #90 tab 08/11/20 cholecalciferol (vitamin D3) 50 50 mcg PO DAILY 30 Days #30 tab 01/03/21 mcg (2,000 unit) tablet sertraline 50 mg tablet 50 mg PO DAILY 90 Days #90 tab 07/06/21 albuterol sulfate 90 mcg/actuation 2 puff INHALATION Q4-6H PRN #8.5 g 11/28/21 aerosol inhaler Allergies Allergy/AdvReac Type Severity Reaction Status Date / Time No Known Allergies Allergy Verified 08/27/21 11:27 Review of Systems Constitutional: Constitutional: Reports no additional constitutional complaints Eyes: Eyes: Reports no additional eye complaints ENT: Denies dizziness Cardiovascular: Cardiovascular: Reports no additional cardiovascular complaints Respiratory: Respiratory: Reports as per HPI Gastrointestinal: Gastrointestinal: Reports no additional gastrointestinal complaints Genitourinary: Genitourinary: Reports no additional female genitourinary complaints Musculoskeletal: Musculoskeletal: Reports no additional musculoskeletal complaints Integumentary/Breasts: Skin/Breast: Denies rash Neurologic: Reports system reviewed and no additional complaints, except as documented, Denies dizziness and Denies Sensory deficit (Neuro) Psychiatric: Psychiatric: Denies anxiety PMFSH Past Medical History Medical History Asthma Bronchiolitis Depression Family history of thyroid cancer Hypovitaminosis D Multinodular goiter Obesity Vertigo Vitamin D deficiency Surgical History History of loop electrical excision procedure (LEEP) History of thyroid surgery Hx of cholecystectomy Hx of mammogram Hx of tubal ligation Family History Family History Father Type 2 diabetes mellitus Mother Diabetes Daughter Thyroid cancer Social History Social History Alcohol intake: never Patient Tobacco Use Status: Never used Tobacco Advance Directives: No Physical Exam ED Vital Signs: Vital Signs - 24 hr 11/28/21 01:20 11/28/21 05:57 Temperature 97.6 F 98.6 F Pulse Rate 69 66 Respiratory Rate 20 14 Blood Pressure 165/77 H 148/80 H Pulse Oximetry 99 99 BMI result Body Mass Index 81.3 Const General: healthy appearing Nutritional Appearance: average body habitus Orientation/consciousness: oriented to person and patient oriented x3 Limitations: no limitations HENMT Head: Yes normal to inspection Ears: external ears normal General nose exam: Normal external nose present Mouth: Normal oral and palatal mucosa present and oropharynx normal Throat: Yes posterior oropharynx normal Eyes General: appearance normal, both eyes and all related structures Neck Neck: Yes normal visual inspection Chest Chest palpation & inspection: normal inspection of the chest Resp Other: slight wheeze bilaterally Cardio Other: 2/6 KRYSTIN Jugular venous distension: no JVD Rate: regular rate Rhythm: regular rhythm GI Inspection: Yes normal to inspection Palpation (GI): Soft to palpation, nontender and No hepatosplenomegaly present Auscultation: normal bowel sounds General: Yes no CVA tenderness Back/Spine/Pelvis Back: no CVA tenderness Skin General skin exam: no rashes or lesions noted Neuro General: oriented to person and patient oriented x3 Cranial nerves: Yes CN's II-XII intact bilaterally Motor exam (neuro): 5/5 motor strength present throughout Sensory Exam: No Sensory deficit (Neuro) Extrem General: Yes normal to inspection Psych Appearance: grossly normal Course Reevaluation(s) Reevaluation #1: Patient with seasonal allergies, will keep her on her lucio and add albuterol MDI, in addition patient will have her heart murmur followed by her doctor Time: 06:38 Medical Decision Making Lab Data Labs: Lab Results 11/28/21 11/28/21 Range/Units 01:51 01:51 COVID-19 (ROSALBA) Negative (Negative) COVID-19 Clin Com See Note Influenza Type A (MYRNA) Negative (Negative) Influenza Type B (MYRNA) Negative (Negative) Influenza A & B Note See Note Discharge Plan Discharge Clinical Impression: Asthma, Acute seasonal allergic rhinitis, Heart murmur Patient Disposition: Home, Self-Care Instructions: Asthma (ED), Allergic Rhinitis (ED), Heart Murmur (ED) Prescriptions: New albuterol sulfate 90 mcg/actuation HFA aerosol inhaler 2 puff inhalation Q4-6H PRN (Reason: shortness of breath or wheezing) Qty: 8.5 0RF No Action meclizine 25 mg tablet 25 mg PO TID Qty: 90 0RF cholecalciferol (vitamin D3) 50 mcg (2,000 unit) tablet 50 mcg PO DAILY 30 Days Qty: 30 11RF sertraline 50 mg tablet 50 mg PO DAILY 90 Days Qty: 90 3RF albuterol sulfate 90 mcg/actuation HFA aerosol inhaler 2 puff inhalation Q4-6H PRN (Reason: shortness of breath or wheezing) Qty: 18 1RF Mirena 20 mcg/24 hours (7 yrs) 52 mg intrauterine device intrauterine 0RF Referrals: Rubina Calix MD [Primary Care Provider] - 5 days
== END 2021-11-28 07:01 | disposition home or self-care (01) ==
PROVIDERS: Emergency Provider Emergency Medicine; PCP Internal Medicine
DX: J45.909 Unspecified asthma, uncomplicated (principal); R01.1 Cardiac murmur, unspecified; Z20.822 Contact with and (suspected) exposure to COVID-19
CPT/HCPCS: 87502; 87635; 99282; 99283

== ENCOUNTER 2022-09-30 13:02 | Outpatient (REF) | payer OTHER, SELFPAY ==
[2022-09-30 15:03] LABS: Free T4 (Free Thyroxine) 0.75 ng/dL (0.71-1.85); Thyroid Stimulating Hormone 1.76 uIU/mL (0.32-4.0); Vitamin D 25-OH Total 26.4 ng/mL (>30)
== END 2022-09-30 13:03 | disposition home or self-care (01) ==
LOC: HO.LAB 13:02
PROVIDERS: PCP Internal Medicine; Visit Provider Internal Medicine
DX: E04.2 Nontoxic multinodular goiter (principal); E55.9 Vitamin D deficiency, unspecified
CPT/HCPCS: 36415; 82306; 84439; 84443

== ENCOUNTER 2022-10-09 15:53 | Outpatient (REF) | payer OTHER, SELFPAY ==
--- NOTE | ~2022-10-09 | MM_ITS ---
EXAMINATION: MM SCREENING DIGITAL BREAST TOMOSYNTHESIS, BILATERAL CLINICAL INFORMATION: Screening. Asymptomatic. The lifetime risk of breast cancer based on the Tyrer-Cuzick Model is 12%. COMPARISON: Mammography: 09/18/2020, 06/29/2020, 02/23/2019 (baseline); left breast ultrasound 09/18/2020 and 02/26/2019. TECHNIQUE: Digital breast tomosynthesis is performed in both the craniocaudal and mediolateral oblique views along with computer-aided detection (CAD). Synthesized 2D images are generated from the tomosynthesis. FINDINGS: There are scattered areas of fibroglandular density (ACR BI-RADS breast composition Category b). There are no significant masses, abnormal calcifications, or other abnormalities. The cysts posterior medial left breast noted previously are less conspicuous/decreased. Again, regional benign coarse round calcifications are present central left breast similar to prior exams. There is no developing density or architectural abnormality. The axilla and skin contours are unremarkable. MM/MM tomosynthesis screening BI IMPRESSION: No mammographic evidence of malignancy. ASSESSMENT: BI-RADS 2: Benign RECOMMENDATION: Routine annual mammography screening. This patient's information was entered into a reminder system with a target due date for their next mammogram.
== END 2022-10-09 15:54 | disposition home or self-care (01) ==
LOC: HO.MAMMO 15:53
PROVIDERS: PCP Internal Medicine; Visit Provider Internal Medicine
DX: Z12.31 Encounter for screening mammogram for malignant neoplasm of breast (principal)
CPT/HCPCS: 77063; 77067

== ENCOUNTER 2023-02-05 16:22 | Outpatient (REF) | payer OTHER, SELFPAY ==
--- NOTE | ~2023-02-05 | US_ITS ---
EXAMINATION: US THYROID CLINICAL INFORMATION: Nontoxic multinodular goiter. COMPARISON: Ultrasound soft tissue head/neck thyroid dated 07/20/2020 and 07/07/2019. TECHNIQUE: Linear transducer grayscale and color Doppler examination with attention to the region of the thyroid. FINDINGS: SIZE: Measurements of the thyroid lobes and nodules are given in sagittal, anteroposterior and transverse dimensions respectively. Right Thyroid Lobe: 3.8 x 1.2 x 1.1 cm, volume 2.6 mL. Previously 5.0 x 1.2 x 1.5 cm, volume 4.5 mL. Parenchyma: The gland echotexture is homogeneous. Thyroid vascularity is normal. Left Thyroid Lobe: 4.2 x 1.1 x 1.5 cm, volume 3.6 mL. Previously 2.7 x 0.7 x 2.0 cm, volume 1.8 mL. Parenchyma: The gland echotexture is homogeneous. Thyroid vascularity is normal. Isthmus: 0.3 cm in maximum AP dimension. Previously 0.3 cm. Estimated total number of nodules greater than or equal to 1 cm: 0. [employer] Fusion Consultant nodules are described as follows: 1. Location: Right lateral superior. Size: 0.7 x 0.6 x 0.5 cm, volume 0.1 mL. Previously: 0.8 x 0.5 x 0.6 cm, volume 0.1 mL. Nodule characteristics: Composition: Solid (2). Echogenicity: Isoechoic (1). Shape: Taller than wide (3). Margins: Ill-defined (0). Echogenic Foci: None (0). ACR TI-RADS total points: 6 ACR TI-RADS category: 4 Significant change in size (>/= 20% in 2 dimensions and minimal increase of 2 mm or 50% or greater increase in volume): No Change in features: Yes, previously hypoechoic now more isoechoic and previously as tall as wide, not taller than wide NODES: A 2.6 x 0.8 x 1.2 cm borderline enlarged right submandibular node which maintains normal hilar architecture previously 2.1 x 0.9 cm only mildly creased in maximal dimension with respect to 2020 and maintains normal hilar architecture therefore favored to be reactive. US/US thyroid IMPRESSION: A 0.7 cm TR 4 right thyroid nodule does not meet criteria for follow-up of the basis of TI RADS score. A borderline-enlarged 0.8 cm short axis right submandibular node only slightly increased from 2020 therefore likely reactive.. ACR TI-RADS RECOMMENDATION REFERENCE: Ultrasound-guided fine-needle aspiration, follow up ultrasound, no further followup. * TR1 (0 point) and TR2 (2 points): No FNA or followup * TR3 (3 points): FNA if more than or equal to 2.5 cm in maximum dimension, follow up ultrasound in 1, 3 and 5 years if 1.5 to 2.4 cm in maximum dimension. * TR4 (4-6 points): FNA if more than or equal to 1.5 cm in maximum dimension, follow up ultrasound in 1, 2, 3 and 5 years if 1 to 1.4 cm in maximum dimension. * TR5 (more than or equal to 7 points): FNA if more than or equal to 1 cm in maximum dimension, follow up ultrasound every year for 5 years if 0.5 to 0.9 cm in maximum dimension. * TR3, TR4 or TR5 nodules that are below the size threshold for follow up receive no followup.
== END 2023-02-05 16:23 | disposition home or self-care (01) ==
LOC: HO.US 16:22
PROVIDERS: PCP Internal Medicine; Visit Provider Internal Medicine
DX: E04.2 Nontoxic multinodular goiter (principal)
CPT/HCPCS: 76536

== ENCOUNTER 2023-02-25 16:01 | Outpatient (AMB) | payer OTHER, SELFPAY ==
--- NOTE | 2023-02-25 16:02 | MHC.OFFVIS ---
Intake Vital Signs 02/25/23 16:05 Height 5 ft 4 in Weight 212 lb 8.41 oz BMI 36.5 BP 138/86 Pulse 92 Pulse Source Pulse Oximeter Intake Visit Reasons: US Results Intake Note: New patient to Dr. Menendez present today for US results. Previously managed by Dr. Mendoza. County Historian Required: No Accompanied by: Self / Same As Patient Allergies No Known Allergies Allergy (Verified 02/25/23 16:07) Medication List - Last Reconciled 02/25/23 by Wilmer Menendez MD albuterol sulfate 90 mcg/actuation 2 puffs inhalation Q4-6H PRN levonorgestrel (Mirena) intrauterine meclizine 25 mg PO TID sertraline 50 mg PO DAILY 90 days HPI HPI Comments History of Present Illness Details 47 YO F who is seen in F/U for a solitary thyroid nodule. Her Daughter was recently diagnosed with aggressive PTC. The patient last saw Dr. Mendoza on 09/30/2022 She had a large 7.1 cm L lobe thyroid nodule with compressive symptoms. She underwent FNA biopsy of this nodule 07/05/2017 which was Benign, but due to compressive symptoms with mass effect seen on imaging with deviation of the trachea and esophagus, she underwent a L partial lobectomy 02/09/2020. The nodule was removed, and official surgical path was: benign follicular nodule with nodular follicular hyperplasia. She does report that since that time she has been feeling well. Her Daughter was recently diagnosed with aggressive PTC and underwent a total thyroidectomy. Dr. Zaldivar (Endocrine Surgery) reviewed this case with me as, given the young age of her Daughter's presentation, there is significant concern for a hereditary syndrome. Fina underwent the [facility] thyroid cancer genetic panel, which was negative for any mutations known to be linked to thyroid cancer. This was reviewed with her. She has not repeated her imaging or followed up in over 2 years. Thyroid US: 07/20/2020 Right Thyroid Lobe: 5.0 x 1.2 x 1.5 cm, volume 4.5 mL. Previous measurements 4.8 x 1.3 x 1.1 and 3.6 mL volume. Parenchyma: The gland echotexture is homogeneous. Thyroid vascularity is normal. Left Thyroid Lobe: 2.7 x 0.7 x 2.0 cm, volume 1.8 mL. Parenchyma: The gland echotexture is homogeneous. Thyroid vascularity is normal. Previously measured 9.8 x 4.3 x 7.4 cm and volume 1.6 mL. Isthmus: 0.3 cm in maximum AP dimension. Previously measured 0.5 cm. RIGHT THYROID LOBE: Solitary nodule midpole measuring 0.8 x 0.5 x 0.6 cm. It is hypoechoic, smoothly marginated with hypoechoic rind and peripheral flow. ISTHMUS: No nodules. LEFT THYROID LOBE: No nodules. CERVICAL LYMPH NODE EVALUATION: Right neck: 1. Level 1B: Lymph node measures 1.1 x 0.6 x 1.2 cm. It has normal echotexture. 2. Level 1B: Lymph node measures 0.9 x 0.6 x 0.8 cm. It has normal echotexture. 3. Level 1B: Lymph node measures 2.0 x 0.8 x 1.4 cm. There is normal echotexture. 4. Level 1A: Lymph node measures 0.7 x 0.4 x 0.7 cm. It has normal echotexture. Left neck: 1. Level 1B: Lymph node measures 1.8 x 0.9 x 1.0 cm. It has a normal echotexture. 2. Level 1B: Lymph node measures 1.1 x 0.4 x 0.7 cm. It has a normal echotexture. 3. Level 1B: Lymph node measures 1.3 x 0.4 x 1.2 cm. It has a normal echotexture. 4. Level 5A: Lymph node measures 0.6 x 0.4 x 0.7 cm. It has a normal echotexture. No recent pertinent labs. [facility] Medical History Asthma Bronchiolitis Depression Family history of thyroid cancer Hypovitaminosis D Multinodular goiter Obesity Vertigo Vitamin D deficiency Surgical History History of loop electrical excision procedure (LEEP) History of thyroid surgery Hx of cholecystectomy Hx of mammogram Hx of tubal ligation Family History Father Type 2 diabetes mellitus Mother Diabetes Daughter Thyroid cancer Social History Alcohol intake: never Patient Tobacco Use Status: Never used Tobacco Female Reproductive History Menstrual Age of Menarche: 14 Physical Exam Vital Signs: Last Vital Signs Pulse 92 02/25/23 16:05 BP 138/86 02/25/23 16:05 BMI result Body Mass Index 36.5 Const Other: Thyroid gland is normal size weighs about 15 g. There are no thyroid nodules palpated Assessment & Plan Assessment & Plan (1) Multinodular goiter: Code(s): E04.2 - Nontoxic multinodular goiter Plan: This is a 47-year-old female with a history of a solitary right subcentimeter thyroid nodule history partial left lobectomy with genetic testing done revealing no genes for thyroid cancer. She appears to be clinically and biochemically euthyroid At this point, patient can follow up with primary care provider who could order repeat thyroid ultrasound in about 2 years time. Patient returned back to endocrinology is a significant change in the size or characteristics of the nodule Coding Level of Care Code Est Pt Level 4 (52172) Diagnoses Multinodular goiter E04.2
[2023-02-25 16:05] VITALS: BP 138/86; PULSE 92; BMI 36.5
== END 2023-02-25 16:24 | disposition home or self-care (01) ==
PROVIDERS: PCP Internal Medicine; Visit Provider Internal Medicine Endocrinology, Diabetes & Metabolism
DX: E04.2 Nontoxic multinodular goiter (principal)
CPT/HCPCS: 99214

== ENCOUNTER → 2023-02-25 16:01 | Outpatient (BNVA) | payer OTHER, SELFPAY | PROVIDERS: PCP Internal Medicine; Visit Provider Internal Medicine Endocrinology, Diabetes & Metabolism ==

== ENCOUNTER 2023-03-12 14:01 | Outpatient (AMB) | payer OTHER, SELFPAY ==
[2023-03-12 14:03] VITALS: BP 168/98; PULSE 72; O2SAT 98; BMI 36.2
--- NOTE | 2023-03-12 14:03 | MHC.PC.OV ---
Vital Signs 03/12/23 14:03 03/12/23 14:33 Height 5 ft 4 in Weight 211 lb BMI 36.2 BP 168/98 H 168/98 H Blood Pressure Location Lt brachial Lt brachial Position Sitting Sitting Pulse 72 Pulse Source Pulse Oximeter Temp Source Skin Pulse Oximetry (%) 98 Oxygen Delivery Method Room Air Intake Visit Reasons: PE Intake Note: Patient is here today for a physical. 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: No Allergies No Known Allergies Allergy (Verified 03/12/23 14:17) Medication List - Last Reconciled 03/12/23 by RENU Norton albuterol sulfate 90 mcg/actuation 2 puffs inhalation Q4-6H PRN levonorgestrel (Mirena) intrauterine meclizine 25 mg PO TID sertraline 50 mg PO DAILY 90 days Tobacco use date assessed: 03/12/23 Dental Screening Dental Screen Date: 03/12/23 Did you have a dental visit in the last 12 months?: Yes Did you have a dental problem in the last 6 months where you did not have access to dental care?: No Was dental information given to patient?: Patient has dentist HPI PE HPI Details Patient is a 47-year-old female who presents today for physical exam. Patient of Dr. Abraham. Medical history significant for depression, obesity, asthma, vertigo, multinodular goiter-was seen by [facility], anxiety. Today we discussed patient's need for colon cancer screening. Mammogram normal 09/2022. Pap smear normal 02/[address] Echevarria. Patient reports that she has to use albuterol inhaler daily since being sick with COVID 07/2022 to help her breathe. She is up-to-date with eye and dental visits. Patient also reports worsening anxiety, feels like sertraline is not helping well. She also reports left upper eyelid lump for the past 1 year which is not improving. Patient denies shortness of breath or chest pain. Reports family history of high blood pressure, blood pressure is elevated in the office as well. [facility] [place] [place] Medical History Family history of thyroid cancer Multinodular goiter Vitamin D deficiency Vertigo Asthma Obesity Hypovitaminosis D Depression Bronchiolitis Surgical History Hx of mammogram History of thyroid surgery History of loop electrical excision procedure (LEEP) Hx of tubal ligation Hx of cholecystectomy Family History Father Type 2 diabetes mellitus Mother Diabetes Daughter Thyroid cancer Social History Alcohol intake: never Patient Tobacco Use Status: Never used Tobacco Cognitive needs: No Hearing needs: No Vision needs: No Female Reproductive History Menstrual Age of Menarche: 14 Questionnaire PHQ-9 Over the last 2 weeks, how often have you been bothered by any of the following problems? 1. Little interest or pleasure in doing things: several days 2. Feeling down, depressed, or hopeless: several days 3. Trouble falling or staying asleep, or sleeping too much: not at all 4. Feeling tired or having little energy: not at all 5. Poor appetite or overeating: not at all 6. Feeling bad about yourself - or that you are a failure or have let yourself or your family down: not at all 7. Trouble concentrating on things, such as reading the newspaper or watching television: not at all 8. Moving or speaking so slowly that other people could have noticed. Or the opposite - being so fidgety or restless that you have been moving around a lot more than usual: not at all 9. Thoughts that you would be better off or of hurting yourself in some way: not at all Total score: 2 Depression Screening Interpretation: Negative 96945 - PHQ-9 Billing: Yes Source: Developed by Drs. Wilmer Jackson, Karolyn Root, Morales Renee and colleagues, with an educational loida from [employer]. Thrive Questionnaire Date Thrive assessed: 03/12/23 I am a: Patient What is your living situation today?: I have a steady place to live Within the past 12 months, did the food you bought not last and you didn't have the money to get more?: Never true Within the past 12 months, did you worry whether your food would run out before you got money to buy more?: Never true Currently or been in a relationship where the following occur: no concerns reported AUDIT C Alcohol Use Questionnaire (AUDIT-C) 1. How often do you have a drink containing alcohol?: Never 3. How often do you have six or more drinks on one occasion?: Never Total Score: 0 Score Reviewed/Action Taken: No JESSENIA-7 AMB Questionnaire JESSENIA-7 Date JESSENIA - 7 assessed: 03/12/23 Feeling nervous, anxious, or on edge: 1 = Several days Not being able to stop or control worryin = Not at all Worrying too much about different things: 0 = Not at all Trouble relaxin = Not at all Being so restless that it is hard to sit still: 0 = Not at all Becoming easily annoyed or irritable: 0 = Not at all Feeling afraid as if something awful might happen: 0 = Not at all Total JESSENIA-7 score (0-4 normal; 5-9 mild; 10-14 moderate; 15-21 severe): 1 Source: Developed by Drs. Wilmer Jackson, Karolyn Root, Morales Renee and colleagues, with an educational loida from [employer]. JESSENIA-7 Assessment Billing JESSENIA-7 Assessment Tool: JESSENIA-7 Assessment 97169 Review of Systems Const Denies body aches, Denies chills, Denies fever(s) and Denies headache(s) Eyes Denies change in vision ENT Denies dizziness, Denies otalgia, Denies headache(s), Denies nasal discharge, Denies sinus pain and Denies sore throat Card Denies chest pain, Denies leg edema, Denies lightheadedness and Denies dyspnea Resp Denies cough, Denies dyspnea and Denies wheezing GI Denies abdominal pain, Denies constipation, Denies diarrhea, Denies nausea and Denies vomiting Denies dysuria Musc Denies myalgias Skin/Breast Reports as per HPI and Denies rash Neuro Denies dizziness and Denies headache(s) Psych Reports anxiety Aller/Immun Denies wheezing Physical exam (Primary Care) Vital Signs: Last Vital Signs Pulse 72 03/12/23 14:03 BP 168/98 H 03/12/23 14:33 Pulse Ox 98 03/12/23 14:03 Oxygen Delivery Method Room Air 03/12/23 14:03 BMI result Body Mass Index 36.2 Tobacco/Smoking Status: Tobacco use Status Tobacco use date assessed 03/12/23 03/12/23 14:11 Patient Tobacco Use Status Never used Tobacco 03/12/23 14:11 PHQ-9: PHQ-9 Score PHQ-9: Total score 2 03/12/23 14:18 Depression Screening Interpretation: Negative Thrive Assessment: Date of Thrive Assessment Date Thrive assessed 03/12/23 03/12/23 14:11 Currently or been in a relationship where the following occur: no concerns reported Const General: cooperative and no acute distress Orientation/consciousness: patient oriented x3 HENMT Head: Yes normocephalic and Yes atraumatic Ears: TM's normal bilaterally Face and sinus: Yes sinuses nontender Mouth: oropharynx normal and moist mucous membranes Throat: Yes posterior oropharynx normal Eyes General: appearance normal, both eyes and all related structures Pupils: Equal, round and reactive pupils present EOM: EOMs intact bilaterally Eyes/upper lids images: 1. Left upper eyelid raised lump about 5mm, nontender, skin intact Neck Neck: Yes normal visual inspection, Yes full ROM and Yes no lymphadenopathy Thyroid: Thyroid normal Resp Effort & Inspection: normal respiratory effort and able to speak in complete sentences Auscultation: clear to auscultation bilaterally, no crackles, no rales, no rhonchi and no wheezes Cardio Rate: regular rate Rhythm: regular rhythm Heart sounds: S1 normal heart sound present, S2 normal heart sound present and no murmurs GI Palpation (GI): Soft to palpation, not firm, nontender, no guarding, not rigid and no hepatosplenomegaly Auscultation: normal bowel sounds General: No CVA tenderness Back/Spine/Pelvis Back: No CVA tenderness Skin General skin exam: no rashes or lesions noted Neuro General: patient oriented x3 Cranial nerves: Yes Equal, round and reactive pupils present Gait exam (Neuro): Normal gait present Extrem General: Yes full ROM and No edema Assessment and Plan Assessment & Plan (1) Chalazion of left upper eyelid: Code(s): H00.14 - Chalazion left upper eyelid Plan: Ophthalmology referral for an evaluation and treatment Encouraged from compresses p.r.n. (2) Elevated blood pressure reading: Code(s): R03.0 - Elevated blood-pressure reading, without diagnosis of hypertension (3) Anxiety: Code(s): F41.9 - Anxiety disorder, unspecified Plan: Increase sertraline to 75 mg daily Patient declined counseling referral (4) Screening for colon cancer: Code(s): Z12.11 - Encounter for screening for malignant neoplasm of colon (5) Asthma: Code(s): J45.909 - Unspecified asthma, uncomplicated Plan: Start Flovent 1 puff b.i.d.-patient is to rinse mouth after inhaler Continue albuterol inhaler p.r.n. (6) Obesity: Code(s): E66.9 - Obesity, unspecified Qualifiers: Obesity type: due to excess calories Obesity classification: adult class 1 (BMI 30 - 34.9) Serious obesity comorbidity presence: without serious comorbidity Body mass index: BMI 34.0-34.9 Qualified Code(s): E66.09 - Other obesity due to excess calories; Z68.34 - Body mass index [BMI] 34.0-34.9, adult Plan: Healthy food choices and exercise as tolerated Patient would like to hold off on weight management referral at this time (7) Hypertension: Code(s): I10 - Essential (primary) hypertension Plan: Goal BP equal or less than 140/90 Blood pressure elevated Blood pressures been elevated up and down for the past couple years Start lisinopril 5 mg daily-educated about possible adverse reactions and when to notify provider Patient is to monitor blood pressures at home Low-sodium diet Follow-up with nurse in 2 weeks for BP recheck (8) Adult general medical exam: Code(s): Z00.00 - Encounter for general adult medical examination without abnormal findings Plan: Repeat in 1 year Blood work ordered Plan Follow-up with PCP in 4 months or sooner as needed Orders: Orders Vitamin D 25-OH Total Today J45.909 - Unspecified asthma, uncomplicated Lipid Panel Today J45.909 - Unspecified asthma, uncomplicated Comprehensive [place]. Panel Fast Today J45.909 - Unspecified asthma, uncomplicated Complete Blood Count Auto Diff Today J45.909 - Unspecified asthma, uncomplicated TSH reflex Free T4 Today J45.909 - Unspecified asthma, uncomplicated Vitamin B12 and Folate Today J45.909 - Unspecified asthma, uncomplicated Referrals Gastroenterology Referral Z12.11 - Encounter for screening for malignant neoplasm of colon Ophthalmology Referral H00.14 - Chalazion left upper eyelid Medications: New sertraline in addition to 50 mg tablet, total sertraline 75 mg daily 25 mg PO DAILY 90 tabs 0RF F41.9 - Anxiety disorder, unspecified lisinopril 5 mg PO DAILY 30 tabs 2RF R03.0 - Elevated blood-pressure reading, without diagnosis of hypertension fluticasone propionate 44 mcg/actuation (Flovent HFA) administer with spacer 1 puff inhalation BID 10.6 grams 2RF J45.909 - Unspecified asthma, uncomplicated Refilled albuterol sulfate 90 mcg/actuation 2 puffs inhalation Q4-6H PRN 8.5 grams 0RF shortness of breath or wheezing J45.909 - Unspecified asthma, uncomplicated Coding Level of Care Code Est Pt Prev Care 40-64y(85174) Diagnoses Chalazion of left upper eyelid H00.14 Elevated blood pressure reading R03.0 Anxiety F41.9 Screening for colon cancer Z12.11 Mild persistent asthma without complication J45.909 Class 1 obesity due to excess calories without serious comorbidity with body mass index (BMI) of 34.0 to 34.9 in adult E66.09; Z68.34 Obesity type: due to excess calories Obesity classification: adult class 1 (BMI 30 - 34.9) Serious obesity comorbidity presence: without serious comorbidity Body mass index: BMI 34.0-34.9 Hypertension I10 Adult general medical exam Z00.00 Additional Codes JESSENIA-7 Assessment Billing - JESSENIA-7 Assessment Tool: JESSENIA-7 Assessment [id number] ([id number])
[2023-03-12 14:33] VITALS: BP 168/98
== END 2023-03-12 14:51 | disposition home or self-care (01) ==
PROVIDERS: PCP Internal Medicine; Visit Provider Nurse Practitioner Family
DX: Z00.00 Encounter for general adult medical examination without abnormal findings (principal); F41.9 Anxiety disorder, unspecified; E66.09 Other obesity due to excess calories; Z68.34 Body mass index [BMI] 34.0-34.9, adult; J45.909 Unspecified asthma, uncomplicated; I10 Essential (primary) hypertension; H00.14 Chalazion left upper eyelid; Z12.11 Encounter for screening for malignant neoplasm of colon
CPT/HCPCS: 99396

== ENCOUNTER 2023-03-15 07:34 | Outpatient (REF) | payer OTHER, SELFPAY ==
[2023-03-15 08:02] LABS: MANUAL DIFF FLAG NO
[2023-03-15 08:44] LABS: Basophils Absolute Auto 0.1 X10*3/uL (0.0-0.2); Eosinophils Percent Auto 10.2 % (0-4); Hematocrit 41.2 % (37.0-47.0); Hemoglobin 12.7 g/dl (12.0-16.0); Imm Gran Abs Auto 0.02 X10*3/uL (0.00-0.03); Imm Gran Pct Auto 0.2 % (0.0-0.4); Lymphocytes Absolute Auto 2.4 X10*3/uL (1.2-4.9); Lymphocytes Percent Auto 24.3 % (20-40); Mean Corpuscular HGB Conc 30.8 g/dl (31.0-35.0); Mean Corpuscular Hemoglobin 23.6 pg (27.0-33.0); Mean Corpuscular Volume 76.6 fL (80.0-98.0); Mean Platelet Volume 11.2 fL (9.4-12.3); Monocytes Absolute Auto 0.5 X10*3/uL (0.1-1.2); Monocytes Percent Auto 4.8 % (2-11); Neutrophils Absolute Auto 5.8 x10*3/uL (2.0-8.3); Neutrophils Percent Auto 59.5 % (45-73); Platelet Count 298 X10*3/uL (160-400); Red Blood Count 5.38 X10*6/uL (4.20-5.50); Red Cell Distribution Width 17.6 % (11.0-16.0); White Blood Count 9.7 X10*3/uL (4.8-10.8)
[2023-03-15 09:40] LABS: Alanine Aminotransferase 16 U/L (0-31); Albumin Level 3.8 g/dL (3.5-5.0); Alkaline Phosphatase 82 U/L (39-117); Anion Gap 8 (12-20); Aspartate Amino Transferase 16 U/L (5-31); Bilirubin Total 0.4 mg/dL (0.0-1.0); Blood Urea Nitrogen 10 mg/dL (9-16); Carbon Dioxide 22 mmol/L (22-29); Chloride 109 mmol/L (96-108); Cholesterol 154 mg/dL (<200); Estimated Glomerular Filt Rate > 60; Glucose Fasting 113 mg/dL (60-99); HDL Cholesterol 42 mg/dL (>40); LDL Cholesterol Calculated 89 mg/dL (<100); Potassium 4.1 mmol/L (3.3-5.1); Sodium 135 mmol/L (135-145); Total Protein 7.3 g/dL (6.5-8.0); Triglycerides 116 mg/dL (<150)
[2023-03-15 09:44] LABS: TSH reflex Free T4 1.55 uIU/mL (0.32-4.0); Vitamin D 25-OH Total 27.9 ng/mL (>30)
[2023-03-15 09:59] LABS: Folate 14.9 ng/mL (> or = 4.0); Vitamin B12 503 pg/mL (200-900)
== END 2023-03-15 07:35 | disposition home or self-care (01) ==
LOC: HO.LAB 07:34
PROVIDERS: PCP Nurse Practitioner Family; Visit Provider Nurse Practitioner Family
DX: J45.909 Unspecified asthma, uncomplicated (principal); R73.01 Impaired fasting glucose; I10 Essential (primary) hypertension; F32.A Depression, unspecified; R71.8 Other abnormality of red blood cells
CPT/HCPCS: 36415; 80053; 80061; 82306; 82607; 82746; 84443; 85025

== ENCOUNTER 2023-03-20 10:57 | Emergency (ER) | payer OTHER, SELFPAY ==
[2023-03-20 11:23] VITALS: BP 150/88; PULSE 68; RESP 19; TEMP 36.6; O2SAT 98; BMI 36.4
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
== END 2023-03-20 12:02 | disposition home or self-care (01) ==
PROVIDERS: Emergency Provider Emergency Medicine; PCP Internal Medicine
DX: S16.1XXA Strain of muscle, fascia and tendon at neck level, initial encounter (principal); V43.52XA Car driver injured in collision with other type car in traffic accident, initial encounter; Y93.89 Activity, other specified; Y92.410 Unspecified street and highway as the place of occurrence of the external cause; Y99.9 Unspecified external cause status
CPT/HCPCS: 99282; 99283

== ENCOUNTER 2023-09-10 19:38 | Emergency (ER) | payer OTHER, SELFPAY ==
--- NOTE | ~2023-09-10 | XR_ITS ---
EXAMINATION: XR CHEST CLINICAL INFORMATION: Cough. COMPARISON: None available. TECHNIQUE: 2 views of the chest were obtained. FINDINGS: Small linear opacity adjacent to the apex of heart on the frontal view with silhouetting of the mediastinal stripe at the cardiac apex. May be atelectasis or a small acute airspace opacity. This is new compared to the study of May 30, 2012. Right lung normally aerated. No pleural effusion. No pulmonary vascular congestion. XR/XR chest 2V IMPRESSION: Small linear opacity adjacent to the apex of heart on the frontal view which may be atelectasis or a small acute airspace opacity.
[2023-09-10 20:05] VITALS: BP 139/87; PULSE 87; RESP 17; TEMP 36.1; O2SAT 95; BMI 34.0
--- NOTE | 2023-09-10 20:06 | ED.GENADULT ---
HPI - General Adult General Chief complaint: Upper Respiratory Symptoms Stated complaint: flu a+, cough, vomiting Time Seen by Provider: 09/10/23 23:13 Source: patient Mode of arrival: ambulatory Limitations: no limitations History of Present Illness HPI narrative: Patient comes to the emergency room complaining of worsening cough. Patient states that she was seen in urgent Care, given albuterol, steroids and Tessalon Perles. Patient states that her cough keeps getting worse, now she has subjective fever and chills. Patient denies shortness of breath. Patient states that now she is coughing so much that she vomits afterwards. Otherwise no vomiting or diarrhea. No abdominal pain. Denies chest pain. Related Data Home Medications Medication Instructions Recorded Confirmed levonorgestrel 21 mcg/24 hours (8 intrauterine 08/27/21 03/12/23 yrs) 52 mg intrauterine device (Mirena) Previous Rx's Medication Instructions Recorded fluticasone propionate 44 1 puff inhalation BID #10.6 grams 03/12/23 mcg/actuation HFA aerosol inhaler (Flovent HFA) cyclobenzaprine 5 mg tablet 5 mg PO TID PRN muscle spasm #10 03/20/23 tabs ibuprofen 600 mg tablet 600 mg PO Q6H PRN pain #20 tabs 03/20/23 lidocaine 5 % topical patch 1 patch topical DAILY #15 ea 03/20/23 sertraline 50 mg tablet 50 mg PO DAILY 90 days #90 tabs 05/31/23 meclizine 25 mg tablet 25 mg PO TID #90 tabs 06/18/23 albuterol sulfate 90 mcg/actuation 2 puff inhalation Q4-6H PRN 07/23/23 aerosol inhaler shortness of breath or wheezing #8.5 grams cholecalciferol (vitamin D3) 25 25 mcg PO DAILY #90 tabs 08/22/23 mcg (1,000 unit) tablet sertraline 25 mg tablet 25 mg PO DAILY #90 tabs 08/22/23 lisinopril 5 mg tablet 5 mg PO DAILY #30 tabs 08/26/23 albuterol sulfate 90 mcg/actuation 2 puff inhalation Q4-6H PRN 09/11/23 aerosol inhaler shortness of breath or wheezing #8.5 grams azithromycin 250 mg tablet 250 mg PO DAILY 4 days #4 tabs 03/14/24 codeine 7.5 mg-guaifenesin 225 5 ml PO Q6H PRN cough 3 days #473 09/11/23 mg/5 mL oral liquid mL doxycycline hyclate 100 mg capsule 100 mg PO DAILY #4 caps 09/11/23 Allergies Allergy/AdvReac Type Severity Reaction Status Date / Time No Known Allergies Allergy Verified 03/20/23 11:22 Review of Systems Review of Systems: Constitutional : No Weight loss, pending of fever and chills No Night Sweats, No Fatigue, No Malaise ENT/Mouth : No Hearing loss, No Ear Pain, No Nasal Congestion, No Sinus Pain, No Hoarseness, No sore throat, No Rhinorrhea, No Swallowing Difficulty Eyes: No Eye Pain, No Swelling, No Redness, No Foreign Body, No Discharge, No Vision Changes Cardiovascular : No Chest Pain, No SOB, No Dyspnea on Exertion, No Orthopnea, No Edema, No Palpitations Respiratory : Complaining of cough, wheezing Gastrointestinal : No Nausea, No Vomiting, No Diarrhea, No Constipation, No abdominal Pain, No Hematochezia, No Melena Genitourinary : no irregular bleeding, No Dysuria, No Urinary Frequency, No Hematuria, No Urinary Incontinence, No Urgency, No Flank Pain, No Urinary Flow Changes, No Hesitancy Musculoskeletal : No joint pain, No Myalgias, No Joint Swelling Skin : No Skin Lesions, No rash Neuro : No Weakness, No Numbness, No Paresthesias, No Loss of Consciousness, No Dizziness, No Headache Psych : No Anxiety/Panic, No Depression, No SI/HI/AH/VH, No Social Issues, Heme/Lymph: No Bruising, No Bleeding,No Lymphadenopathy Endocrine : No Polyuria, No Polydipsia, No Temperature Intolerance [facility] Past Medical History Medical History Family history of thyroid cancer Multinodular goiter Vitamin D deficiency Vertigo Asthma Obesity Hypovitaminosis D Depression Bronchiolitis Surgical History Hx of mammogram History of thyroid surgery History of loop electrical excision procedure (LEEP) Hx of tubal ligation Hx of cholecystectomy Family History Family History Father Type 2 diabetes mellitus Mother Diabetes Daughter Thyroid cancer Social History Social History Alcohol intake: never Patient Tobacco Use Status: Never used Tobacco Advance Directives: No Advance Directives Information Provided: No Cognitive needs: No Hearing needs: No Vision needs: No Physical Exam ED Vital Signs: Vital Signs - 24 hr 09/10/23 20:05 09/10/23 21:13 09/10/23 23:15 Temperature 97.0 F 100.7 F H Pulse Rate 87 87 91 Respiratory Rate 17 18 16 Blood Pressure 139/87 149/85 H Pulse Oximetry 95 96 Oxygen Delivery Method Room Air Room Air BMI result Body Mass Index 34.0 Const Other: Appearance: Alert. Oriented X3. No acute distress. Eyes: Pupils equal, round and reactive to light. ENT: Pharynx normal. Neck: Normal inspection. Neck supple. No lymph nodes noted. No crepitus CVS: Normal heart rate and rhythm. Pulses normal. Normal S1 and S2 Respiratory: No respiratory distress. Breath sounds normal. No Wheezing. No rales , actively coughing Abdomen: Soft and nontender. No rigidity. No distention. Skin: Skin warm and dry. Normal skin color. Normal skin turgor. Extremities: No lower extremity edema. No Lacerations. No Rash Neuro: Oriented X 3. No motor deficit. No sensory deficit. Moving all extremities. No slurred speech. CN 2 through 12 grossly intact Psych: calm, cooperative, normal affect Course Course Course Narrative: RME performed by Pia Robles PA-C. Patient is a 47 year old assigned female at presenting to the emergency department with a cough and history of asthma. Detailed physical exam and review of systems are deferred to the primer waterproofing machine adjuster. Labs, imaging, swabs ordered. Patient placed back in the waiting room pending room availability and results. Medications Administered Discontinued Medications Generic Name Dose Route Start Last Admin Trade Name Freq PRN Reason Stop Dose Admin Albuterol Sulfate 2 puff 09/10/23 20:55 09/10/23 21:05 Albuterol Sulfate 90 Mcg 8 Gm Inhaler INHALE 09/10/23 20:56 2 puff ONCE ONE Administration Medical Decision Making Medical Decision Making [facility] Narrative: -my interpretation of labs: Normal hematology, chemistry at baseline -my interpretation of chest x-ray, no obvious pneumonia. However, radiology report: Small linear opacity adjacent to the apex of heart on the frontal view with silhouetting of the mediastinal stripe at the cardiac apex. May be atelectasis or a small acute airspace opacity. -patient's blood pressure stable, patient does have a bit of fever, not tachycardic, well-appearing. Sepsis not suspected. Patient's oxygen saturation 96% on room air -patient was given p.o. guaifenesin/codeine, treated with antibiotics, 1st dose given in the emergency room, also given p.o. Tylenol and Motrin -patient requesting a refill for albuterol pump, patient already on prednisone, today's they 2. Differential Diagnosis Differential Diagnoses: The differential diagnosis associated with the presentation includes (Asthma, COVID, pneumonia, influenza) Lab Data MDM Lab Attestation statement: I reviewed the patient's lab results. 09/10/23 20:17 09/10/23 20:17 Labs: Lab Results 09/10/23 Range/Units 20:17 WBC 8.2 (4.8-10.8) X10*3/uL RBC 5.62 H (4.20-5.50) X10*6/uL Hgb 14.4 (12.0-16.0) g/dl Hct 45.1 (37.0-47.0) % MCV 80.2 (80.0-98.0) fL MCH 25.6 L (27.0-33.0) pg MCHC 31.9 (31.0-35.0) g/dl RDW 15.0 (11.0-16.0) % Plt Count 242 (160-400) X10*3/uL MPV 11.1 (9.4-12.3) fL Immature Gran % (Auto) 0.2 (0.0-0.4) % Neut % (Auto) 80.9 H (45-73) % Lymph % (Auto) 10.9 L (20-40) % Spink % (Auto) 7.8 (2-11) % Eos % (Auto) 0.0 (0-4) % Baso % (Auto) 0.2 (0-2) % Lymph # (Auto) 0.9 L (1.2-4.9) X10*3/uL Spink # (Auto) 0.6 (0.1-1.2) X10*3/uL Eos # (Auto) 0.0 (0.0-0.4) X10*3/uL Baso # (Auto) 0.0 (0.0-0.2) X10*3/uL Abs Immat Gran (auto) 0.02 (0.00-0.03) X10*3/uL Absolute Neuts (auto) 6.6 (2.0-8.3) x10*3/uL Absolute Nucleated RBC 0.000 (0.0-0.012) X10*3/uL Nucleated RBC % (auto) 0.0 (0.0-0.2) /100WBC Sodium 142 (135-145) mmol/L Potassium 4.1 (3.3-5.1) mmol/L Chloride 112 H (96-108) mmol/L Carbon Dioxide 24 (22-29) mmol/L Anion Gap 10 L (12-20) BUN 8 L (9-16) mg/dL Creatinine 0.65 (0.5-1.4) mg/dL Estim Creat Clear Calc 118.6 Estimated GFR > 60 Random Glucose 94 (60-115) mg/dL Calcium 9.3 (8.4-10.2) mg/dL Magnesium 2.0 (1.6-2.6) mg/dL Total Bilirubin 0.1 (0.0-1.0) mg/dL AST 19 (5-31) U/L ALT 28 (0-31) U/L Alkaline Phosphatase 80 (39-117) U/L Total Protein 8.0 (6.5-8.0) g/dL Albumin 4.2 (3.5-5.0) g/dL S. pyogenes GrpA MYRNA Negative (Negative) Independent Interpretation I performed an independent interpretation of an: Plain X-Ray Radiology Impression Discussion of test interpretation with radiology: I have reviewed the radiologist's reading. Radiologist Impression: Small linear opacity adjacent to the apex of heart on the frontal view with silhouetting of the mediastinal stripe at the cardiac apex. May be atelectasis or a small acute airspace opacity. This is new compared to the study of May 30, 2012. Right lung normally aerated. No pleural effusion. No pulmonary vascular congestion. XR/XR chest 2V IMPRESSION: Small linear opacity adjacent to the apex of heart on the frontal view which may be atelectasis or a small acute airspace opacity. Discharge Plan Discharge Clinical Impression: Pneumonia Patient Disposition: Home, Self-Care Instructions: Pneumonia (ED) Additional Instructions: Please follow-up with your primary care physician tomorrow. If you have any worsening or new symptoms, please return to the emergency room or call 911 Prescriptions: New azithromycin 250 mg tablet 250 mg PO DAILY 4 Days Qty: 4 0RF Rx Instructions: start on day 2 of therapy doxycycline hyclate 100 mg capsule 100 mg PO DAILY Qty: 4 0RF albuterol sulfate 90 mcg/actuation HFA aerosol inhaler 2 puff inhalation Q4-6H PRN (Reason: shortness of breath or wheezing) Qty: 8.5 0RF codeine-guaifenesin 7.5-225 mg/5 mL liquid 5 ml PO Q6H PRN (Reason: cough) 3 Days Qty: 473 0RF No Action sertraline 50 mg tablet 50 mg PO DAILY 90 Days Qty: 90 3RF meclizine 25 mg tablet 25 mg PO TID Qty: 90 0RF albuterol sulfate 90 mcg/actuation HFA aerosol inhaler 2 puff inhalation Q4-6H PRN (Reason: shortness of breath or wheezing) Qty: 8.5 0RF sertraline 25 mg tablet 25 mg PO DAILY Qty: 90 0RF Rx Instructions: in addition to 50 mg tablet, total sertraline 75 mg daily cholecalciferol (vitamin D3) 25 mcg (1,000 unit) tablet 25 mcg PO DAILY Qty: 90 0RF lisinopril 5 mg tablet 5 mg PO DAILY Qty: 30 2RF ibuprofen 600 mg tablet 600 mg PO Q6H PRN (Reason: pain) Qty: 20 0RF lidocaine 5 % adhesive patch,medicated 1 patch topical DAILY Qty: 15 0RF Rx Instructions: leave on most painful area for up to 12 hrs cyclobenzaprine 5 mg tablet 5 mg PO TID PRN (Reason: muscle spasm) Qty: 10 0RF fluticasone propionate [Flovent HFA] 44 mcg/actuation HFA aerosol inhaler 1 puff inhalation BID Qty: 10.6 2RF Rx Instructions: administer with spacer Mirena 20 mcg/24 hours (7 yrs) 52 mg intrauterine device intrauterine
[2023-09-10 20:21] LABS: MANUAL DIFF FLAG NO
[2023-09-10 20:22] LABS: Basophils Percent Auto 0.2 % (0-2); Hematocrit 45.1 % (37.0-47.0); Hemoglobin 14.4 g/dl (12.0-16.0); Imm Gran Abs Auto 0.02 X10*3/uL (0.00-0.03); Imm Gran Pct Auto 0.2 % (0.0-0.4); Lymphocytes Absolute Auto 0.9 X10*3/uL (1.2-4.9); Lymphocytes Percent Auto 10.9 % (20-40); Mean Corpuscular HGB Conc 31.9 g/dl (31.0-35.0); Mean Corpuscular Hemoglobin 25.6 pg (27.0-33.0); Mean Corpuscular Volume 80.2 fL (80.0-98.0); Mean Platelet Volume 11.1 fL (9.4-12.3); Monocytes Absolute Auto 0.6 X10*3/uL (0.1-1.2); Monocytes Percent Auto 7.8 % (2-11); Neutrophils Absolute Auto 6.6 x10*3/uL (2.0-8.3); Neutrophils Percent Auto 80.9 % (45-73); Platelet Count 242 X10*3/uL (160-400); Red Blood Count 5.62 X10*6/uL (4.20-5.50); White Blood Count 8.2 X10*3/uL (4.8-10.8)
[2023-09-10 20:35] LABS: Alanine Aminotransferase 28 U/L (0-31); Albumin Level 4.2 g/dL (3.5-5.0); Alkaline Phosphatase 80 U/L (39-117); Anion Gap 10 (12-20); Aspartate Amino Transferase 19 U/L (5-31); Bilirubin Total 0.1 mg/dL (0.0-1.0); Blood Urea Nitrogen 8 mg/dL (9-16); Calcium 9.3 mg/dL (8.4-10.2); Carbon Dioxide 24 mmol/L (22-29); Chloride 112 mmol/L (96-108); Creatinine Clr Calc Pharmacy 118.6; Estimated Glomerular Filt Rate > 60; Glucose Random 94 mg/dL (60-115); Potassium 4.1 mmol/L (3.3-5.1); Sodium 142 mmol/L (135-145)
[2023-09-10] MEDS: Albuterol Sulfate 90 MCG 8 GM INHALER 2 PUFF INHALE (21:05)
[2023-09-10 21:13] VITALS: PULSE 87; RESP 18; O2SAT 95
[2023-09-10 21:14] LABS: IDNOW Serial# 08D9AD1C; Strep A Nucleic Acid Negative (Negative)
[2023-09-10 23:15] VITALS: BP 149/85; PULSE 91; RESP 16; TEMP 38.2; O2SAT 96
[2023-09-11] MEDS: Doxycycline Monohydrate 100 MG CAPSULE PO (00:56)
[2023-09-11] MEDS: Azithromycin 500 MG TABLET PO (00:56)
[2023-09-11] MEDS: Acetaminophen 325 MG TABLET 650 MG PO (00:56)
[2023-09-11] MEDS: guaiFEN/Codeine SF 200/20/10ML 10 ML LIQUID 5 ML PO (00:57)
[2023-09-11] MEDS: Ibuprofen 600 MG TABLET PO (00:57)
== END 2023-09-11 01:14 | disposition home or self-care (01) ==
PROVIDERS: Physician Assistant Medical; Emergency Provider Emergency Medicine; PCP Internal Medicine
DX: J18.9 Pneumonia, unspecified organism (principal); R05.9 Cough, unspecified; R11.2 Nausea with vomiting, unspecified; Z11.52 Encounter for screening for COVID-19; Z79.899 Other long term (current) drug therapy
CPT/HCPCS: 36415; 71046; 80053; 83735; 85025; 87651; 94640; 94664; 99284

== ENCOUNTER 2023-10-15 15:51 | Outpatient (REF) | payer OTHER, SELFPAY ==
--- NOTE | ~2023-10-15 | MM_ITS ---
EXAMINATION: MM SCREENING DIGITAL BREAST TOMOSYNTHESIS, BILATERAL CLINICAL INFORMATION: Screening. Asymptomatic. COMPARISON: Mammography: This study is compared with prior exams dating back to 2019. TECHNIQUE: Digital breast tomosynthesis is performed in both the craniocaudal and mediolateral oblique views along with computer-aided detection (CAD). Synthesized 2D images are generated from the tomosynthesis. FINDINGS: There are scattered areas of fibroglandular density (ACR BI-RADS breast composition Category b). There are no significant masses, abnormal calcifications, or other abnormalities. There are unchanged, benign calcifications in the central portion of the left breast. MM/MM tomosynthesis screening BI IMPRESSION: No mammographic evidence of malignancy. ASSESSMENT: BI-RADS BI-RADS 2 - Benign Findings RECOMMENDATION: Routine annual mammography screening. 1 year F/U This examination should not preclude the clinical evaluation of a suspicious palpable abnormality. This patient's information was entered into a reminder system with a target due date for their next mammogram.
== END 2023-10-15 15:52 | disposition home or self-care (01) ==
LOC: HO.MAMMO 15:51
PROVIDERS: PCP Internal Medicine; Visit Provider Internal Medicine
DX: Z12.31 Encounter for screening mammogram for malignant neoplasm of breast (principal)
CPT/HCPCS: 77063; 77067

== ENCOUNTER → 2023-10-15 16:00 | Outpatient (BNV) | payer OTHER, SELFPAY | PROVIDERS: PCP Internal Medicine; Visit Provider Radiology Diagnostic Radiology | DX: Z12.31 Encounter for screening mammogram for malignant neoplasm of breast (principal) | CPT/HCPCS: 77063; 77067 ==

== ENCOUNTER 2024-08-03 16:47 | Outpatient (AMB) | payer OTHER, SELFPAY ==
--- NOTE | 2024-08-03 16:51 | MHC.PC.OV ---
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 Accompanied by: Self / Same As Patient Allergies No Known Allergies Allergy (Verified 08/03/24 17:10) Medication List - Last Reconciled 08/03/24 by Rubina Loaiza MD albuterol sulfate 90 mcg/actuation 2 puffs inhalation Q4-6H PRN cholecalciferol (vitamin D3) 25 mcg PO DAILY cyclobenzaprine 5 mg PO TID PRN fluticasone propionate 44 mcg/actuation 1 puff inhalation BID ibuprofen 600 mg PO Q6H PRN levonorgestrel (Mirena) intrauterine lisinopril 5 mg PO DAILY meclizine 25 mg PO TID sertraline 25 mg PO DAILY sertraline 50 mg PO DAILY 90 days Tobacco use date assessed: 08/03/24 Dental Screening Dental Screen Date: 08/03/24 Did you have a dental visit in the last 12 months?: Yes Did you have a dental problem in the last 6 months where you did not have access to dental care?: No Was dental information given to patient?: Patient has dentist HPI HPI Comments History of Present Illness Details The patient is a 48-year-old female presenting for her physical exam. She has concerns about weight management and symptoms possibly related to menopause. She reports a history of struggling with weight fluctuations and is interested in exploring weight management options. The patient notes experiencing consistent tiredness, and occasional hot flashes, raising concerns about potential premenopausal symptoms. She stated feelings of exhaustion and difficulty in maintaining energy levels, and attributed some symptoms to being out of shape, such as breathlessness when climbing stairs. She expressed interest in medications commonly used for diabetes management that could aid in weight loss but was informed about insurance limitations. She did not report any known allergies to medications and takes several medications including Lisinopril for hypertension, Vitamin D supplements, Sertraline, Meclizine, and a nasal spray. She has undergone a tubal ligation, gallbladder removal, and thyroid surgery and maintains regular use of a rescue inhaler as needed. - Pap smear performed in 2020 with HPV-negative results; next due in 2025 - Mammogram was completed last year; a repeat is scheduled for this year - Tdap vaccine due in October of this year - Need for initial colonoscopy has been identified; patient to decide between colonoscopy or Cologuard - Blood work ordered to check for cholesterol, sugar levels, kidney function, liver function, and thyroid assessment - Discussion on weight management options including pharmaceutical interventions and weight management clinics [facility] Medical History Family history of thyroid cancer Multinodular goiter Vitamin D deficiency Vertigo Asthma Obesity Hypovitaminosis D Depression Bronchiolitis Surgical History Hx of mammogram History of thyroid surgery History of loop electrical excision procedure (LEEP) Hx of tubal ligation Hx of cholecystectomy Family History Father Type 2 diabetes mellitus Mother Diabetes Daughter Thyroid cancer Social History Housing: House Alcohol intake: current Alcohol intake frequency: holidays/special occasions only Alcohol type: other Patient Tobacco Use Status: Never used Tobacco e-Cigarette/Vaping Use: Never Used Second Hand Smoke Exposure: No service: No Current occupational status: employed Current occupational exposures/hazards: No Cognitive needs: No Hearing needs: No Vision needs: Yes Female Reproductive History Menstrual Age of Menarche: 14 Questionnaire PHQ-9 Over the last 2 weeks, how often have you been bothered by any of the following problems? 1. Little interest or pleasure in doing things: several days 2. Feeling down, depressed, or hopeless: several days 3. Trouble falling or staying asleep, or sleeping too much: several days 4. Feeling tired or having little energy: not at all 5. Poor appetite or overeating: not at all 6. Feeling bad about yourself - or that you are a failure or have let yourself or your family down: not at all 7. Trouble concentrating on things, such as reading the newspaper or watching television: not at all 8. Moving or speaking so slowly that other people could have noticed. Or the opposite - being so fidgety or restless that you have been moving around a lot more than usual: not at all 9. Thoughts that you would be better off or of hurting yourself in some way: not at all Total score: 3 Depression Screening Interpretation: Positive Depression Screening Follow-up: Existing condition, In treatment and Follow-up Visit Requested Depression Screening Done: Yes 54212 - PHQ-9 Billing: Yes Source: Developed by Drs. Wilmer Jackson, Karolyn Root, Morales Renee and colleagues, with an educational loida from [employer]. Thrive Questionnaire Date Thrive assessed: 08/03/24 I am a: Patient What is your living situation today?: I have a steady place to live Within the past 12 months, did the food you bought not last and you didn't have the money to get more?: Never true Within the past 12 months, did you worry whether your food would run out before you got money to buy more?: Never true Do you have trouble paying for medicines?: No Do you have trouble getting transportation to medical appointments?: No Do you have trouble paying your heating and electricity bill?: No Do you have trouble taking care of your child, family member or friend?: No Do you have trouble with day-to-day activities such as bathing, preparing meals, shopping, managing finances, etc.?: No Are you currently unemployed and looking for a job?: No Are you interested in more education?: Yes Please select the resources that you would like help with: None Currently or been in a relationship where the following occur: No concerns reported THRIVE Score: 0 AUDIT C Alcohol Use Questionnaire (AUDIT-C) 1. How often do you have a drink containing alcohol?: Monthly or less 2. How many drinks containing alcohol do you have on a typical day when you are drinking?: 3 or 4 3. How often do you have six or more drinks on one occasion?: Never Total Score: 2 Score Reviewed/Action Taken: No JESSENIA-7 AMB Questionnaire JESSENIA-7 Date JESSENIA - 7 assessed: 08/03/24 Feeling nervous, anxious, or on edge: 1 = Several days Not being able to stop or control worryin = Several days Worrying too much about different things: 1 = Several days Trouble relaxin = Several days Being so restless that it is hard to sit still: 0 = Not at all Becoming easily annoyed or irritable: 1 = Several days Feeling afraid as if something awful might happen: 1 = Several days Total JESSENIA-7 score (0-4 normal; 5-9 mild; 10-14 moderate; 15-21 severe): 6 Source: Developed by Drs. Wilmer Jackson, Karolyn Root, Morales Renee and colleagues, with an educational loida from [employer]. JESSENIA-7 Assessment Billing JESSENIA-7 Assessment Tool: JESSENIA-7 Assessment 89915 Review of Systems Const All systems reviewed & are unremarkable except as noted in HPI and below Card Denies chest pain at rest, Denies chest pain with activity, Denies edema, Denies irregular heart rhythm, Denies claudication, Denies dyspnea, Denies dyspnea on exertion, Denies orthopnea, Denies paroxysmal nocturnal dyspnea and Denies slow heart rate Resp Denies cough, Denies dyspnea and Denies dyspnea on exertion GI Denies abdominal pain, Denies change in bowel habits, Denies excessive flatus, Denies nausea and Denies vomiting Neuro Denies behavioral changes and Denies lack of coordination Psych Denies behavioral changes Physical exam (Primary Care) Vital Signs: Last Vital Signs BP 130/82 08/03/24 16:52 BMI result Body Mass Index 37.6 BMI Assessment/Plan discussion: High BMI High, discussed plan: lifestyle, weight reduction, dietary and physical activity Tobacco/Smoking Status: Tobacco use Status Tobacco use date assessed 08/03/24 08/03/24 16:58 Patient Tobacco Use Status Never used Tobacco 08/03/24 16:58 e-Cigarette/Vaping Use Never Used 08/03/24 16:58 PHQ-9: PHQ-9 Score PHQ-9: Total score 3 08/03/24 17:15 Depression Screening Interpretation: Positive Depression Screening Follow-up: Existing condition, In treatment and Follow-up Visit Requested Thrive Assessment: Date of Thrive Assessment Date Thrive assessed 08/03/24 08/03/24 16:58 Currently or been in a relationship where the following occur: No concerns reported HENMO Head: Yes normal to inspection, Yes normocephalic and Yes atraumatic Ears: external ears normal Eyes General: appearance normal, both eyes and all related structures Eyelids: Yes eyelids normal Conjunctivae: conjunctivae normal Neck Neck: Yes normal visual inspection and Yes supple Resp Effort & Inspection: normal respiratory effort Auscultation: clear to auscultation bilaterally Cardio Jugular venous distension: no JVD Rate: regular rate Rhythm: regular rhythm Heart sounds: S1 normal heart sound present and S2 normal heart sound present GI Inspection: Yes normal to inspection Palpation (GI): Soft to palpation and nontender Auscultation: normal bowel sounds Skin General skin exam: no rashes or lesions noted Neuro General: no focal motor deficits Extrem General: Yes full ROM Psych Appearance: grossly normal Coding Level of Care Code Est Pt Level 3 (31535) Est Pt Prev Care 40-64y(04041) Diagnoses Adult general medical exam Z00.00 Class 2 obesity with body mass index (BMI) of 37.0 to 37.9 in adult E66.812; Z68.37 Additional Codes JESSENIA-7 Assessment Billing - JESSENIA-7 Assessment Tool: JESSENIA-7 Assessment 78188 ([id number]) PHQ-9 - 73361 - PHQ-9 Billing: Yes ([id number]) Time Spent (min) 33 Assessment & Plan Assessment & Plan (1) Adult general medical exam: Code(s): Z00.00 - Encounter for general adult medical examination without abnormal findings Category: Medical (2) Class 2 obesity with body mass index (BMI) of 37.0 to 37.9 in adult: Code(s): E66.812 - Obesity, class 2; Z68.37 - Body mass index [BMI] 37.0-37.9, adult Category: Medical Plan - Order blood work to evaluate cholesterol, glucose, renal and hepatic functions, and thyroid levels - Schedule a colonoscopy to initiate colon cancer screening - Prescribe weight management options and referral to a weight management clinic for more structured support - Schedule the Tdap vaccine post-October - Arrange follow-up mammogram Patient was informed and verbally consented to the use of an ambient scribe for clinic note documentation during this visit. I discussed with the patient the planned interventions including the blood work to evaluate various health markers. We reviewed the need for a colonoscopy for colon cancer screening and addressed the options including Cologuard for convenience. The patient showed interest in weight loss pharmaceuticals, but we discussed the challenges with insurance coverage and alternative avenues through specialized clinics. I emphasized the benefits of regular tracking and the management of weight through established clinics. We agreed on a structured follow-up for mammography and vaccination scheduling, acknowledging the requirements for maintaining recommended health screenings. Orders: Orders MM tomosynthesis screening BI Today Z12.31 - Encounter for screening mammogram for malignant neoplasm of breast Vitamin D 25-OH Total Today E55.9 - Vitamin D deficiency, unspecified Lipid Panel Today Z00.00 - Encounter for general adult medical examination without abnormal findings Comprehensive [place]. Panel Fast Today Z00.00 - Encounter for general adult medical examination without abnormal findings Thyroid Stimulating Hormone Today E04.2 - Nontoxic multinodular goiter Referrals Open Access Screening Colonoscopy Referral Z12.12 - Encounter for screening for malignant neoplasm of rectum Medical Weight Management Referral E66.812 - Obesity, class 2, Z68.37 - Body mass index [BMI] 37.0-37.9, adult Medications: Changed From fluticasone propionate 44 mcg/actuation (Flovent HFA) administer with spacer 1 puff inhalation BID 10.6 grams 2RF J45.909 - Unspecified asthma, uncomplicated To fluticasone propionate 44 mcg/actuation administer with spacer 1 puff inhalation BID 10.6 grams 2RF J45.909 - Unspecified asthma, uncomplicated Refilled cholecalciferol (vitamin D3) 25 mcg PO DAILY 90 tabs 0RF R79.89 - Other specified abnormal findings of blood chemistry Patient Instructions: - Complete blood work this week to evaluate cholesterol, glucose, kidney, liver and thyroid function. - Arrange appointment for colonoscopy screening at earliest convenience. - Consider consulting a weight management clinic for long-term support. - Schedule Tdap vaccine appointment post-October. - Monitor for symptoms of fatigue or hot flashes and report any significant changes.
[2024-08-03 16:52] VITALS: BP 130/82; BMI 37.6
== END 2024-08-03 17:25 | disposition home or self-care (01) ==
PROVIDERS: PCP Internal Medicine; Visit Provider Internal Medicine
DX: Z00.00 Encounter for general adult medical examination without abnormal findings (principal); E66.812 Obesity, class 2; Z68.37 Body mass index [BMI] 37.0-37.9, adult

== ENCOUNTER → 2024-08-03 16:47 | Outpatient (BNVA) | payer OTHER, SELFPAY | PROVIDERS: PCP Internal Medicine; Visit Provider Internal Medicine | DX: Z00.00 Encounter for general adult medical examination without abnormal findings (principal); E66.812 Obesity, class 2; Z68.36 Body mass index [BMI] 36.0-36.9, adult; J45.909 Unspecified asthma, uncomplicated | CPT/HCPCS: 96127 ==

== ENCOUNTER 2024-08-14 07:44 | Outpatient (REF) | payer OTHER, SELFPAY ==
[2024-08-14 08:49] LABS: Alanine Aminotransferase 27 U/L (0-31); Alkaline Phosphatase 86 U/L (39-117); Anion Gap 12 (12-20); Aspartate Amino Transferase 22 U/L (5-31); Bilirubin Total 0.3 mg/dL (0.0-1.0); Blood Urea Nitrogen 10 mg/dL (9-16); Calcium 9.4 mg/dL (8.4-10.2); Carbon Dioxide 22 mmol/L (22-29); Chloride 109 mmol/L (96-108); Cholesterol 166 mg/dL (<200); Estimated Glomerular Filt Rate > 60; Glucose Fasting 136 mg/dL (60-99); HDL Cholesterol 44 mg/dL (>40); LDL Cholesterol Calculated 95 mg/dL (<100); Potassium 4.2 mmol/L (3.3-5.1); Sodium 139 mmol/L (135-145); Total Protein 7.7 g/dL (6.5-8.0); Triglycerides 137 mg/dL (<150)
[2024-08-14 08:51] LABS: Thyroid Stimulating Hormone 2.25 uIU/mL (0.32-4.0); Vitamin D 25-OH Total 21.4 ng/mL (>30)
== END 2024-08-14 07:45 | disposition home or self-care (01) ==
LOC: HO.LAB 07:44
PROVIDERS: PCP Internal Medicine; Visit Provider Internal Medicine
DX: Z00.00 Encounter for general adult medical examination without abnormal findings (principal); E55.9 Vitamin D deficiency, unspecified; E04.2 Nontoxic multinodular goiter; Z13.6 Encounter for screening for cardiovascular disorders
CPT/HCPCS: 36415; 80053; 80061; 82306; 84443

== ENCOUNTER → 2024-08-26 09:32 | Outpatient (BNVA) | payer OTHER, SELFPAY | PROVIDERS: PCP Internal Medicine; Visit Provider Physician Assistant Surgical ==

== ENCOUNTER 2024-09-03 07:57 | Outpatient (AMB) | payer OTHER, SELFPAY ==
--- NOTE | 2024-09-03 07:58 | MHC.OFFVISWM ---
VS Expanded 09/03/24 08:08 Height 5 ft 4 in Weight 219 lb 2 oz BMI 37.6 Body Fat % 44.6 Body Fat Mass 97.6 Fat Free Mass 121.4 Visceral Fat Rating 12 Body Water % 39.5 Body Water Mass 86.6 Basal Metabolic Rate/Score 1,704 Intake Visit Reasons: [employer] [facility] *SEE COMMENTS* Allergies No Known Allergies Allergy (Verified 09/03/24 07:58) Medication List - Last Reconciled 09/03/24 by Yohan Mcdowell MD albuterol sulfate 90 mcg/actuation 2 puffs inhalation Q4-6H PRN cholecalciferol (vitamin D3) 25 mcg PO DAILY fluticasone propionate 44 mcg/actuation 1 puff inhalation BID levonorgestrel (Mirena) intrauterine lisinopril 5 mg PO DAILY meclizine 25 mg PO TID sertraline 25 mg PO DAILY sertraline 50 mg PO DAILY 90 days HPI HPI [employer] [facility] *SEE COMMENTS*: Details: Start time: 7.56am, End time: 8.46am ?I spent 45 minutes speaking with the patient on the phone plus an additional 5 minutes reviewing and updating records for a total of 50 minutes HPI Comments Details: Previous weight loss efforts: Keto diet, low card diets Wakes up: 6.15am, Sleeps: 12am Breakfast: skips Lunch: 12pm (sandwich with ham and cheese, or peanut butter jelly) Dinner: 5pm (rice, pasta, chicken) Snacks: 8-9am (banana, peanut butter crackers), 8pm (cookies, pop tarts) Exercise: Has home treadmill Fluids: Coffee (2 large coffees/day with creamer), tea: none, soda: none, juice: none, ETOH: none PFSH Medical History (Updated 09/03/24 @ 08:04 by Yohan Mcdowell MD) GERD (gastroesophageal reflux disease) Family history of thyroid cancer Multinodular goiter Vitamin D deficiency Vertigo Asthma Obesity Hypovitaminosis D Depression Bronchiolitis Surgical History Hx of mammogram History of thyroid surgery History of loop electrical excision procedure (LEEP) Hx of tubal ligation Hx of cholecystectomy Family History (Updated 08/26/24 @ 09:35 by SARINA Johnson) Father Type 2 diabetes mellitus Mother Diabetes Daughter Thyroid cancer Maternal Aunt Liver cancer Paternal Aunt Breast cancer Social History Housing: House Alcohol intake: current Alcohol intake frequency: holidays/special occasions only Alcohol type: other Patient Tobacco Use Status: Never used Tobacco e-Cigarette/Vaping Use: Never Used Second Hand Smoke Exposure: No service: No Current occupational status: employed Current occupational exposures/hazards: No Cognitive needs: No Hearing needs: No Vision needs: Yes Female Reproductive History Menstrual Age of Menarche: 14 Telehealth Telehealth Telehealth Platform: Telephone Location of provider rendering services: practice address Location of patient: address on file Patient Identification confirmed using: Name, : Yes Telehealth method: voice only Patient verbally consented to treatment: Yes Patient verbally consented to billing insurance company: Yes Patient informed of any privacy concerns related to visit: Yes Minutes spent on Phone/Video with Pt.: 50 Assessment & Plan Assessment & Plan (1) Obesity: Code(s): E66.9 - Obesity, unspecified Category: Medical Qualifiers: Obesity type: due to excess calories Obesity classification: adult class 1 (BMI 30 - 34.9) Serious obesity comorbidity presence: without serious comorbidity Body mass index: BMI 34.0-34.9 Qualified Code(s): E66.09 - Other obesity due to excess calories; Z68.34 - Body mass index [BMI] 34.0-34.9, adult Plan: 1.? Plan for lap sleeve gastrectomy. If diaphragmatic or ventral hernias are present at time of surgery, these will be repaired laparoscopically as well. I emphasized the importance of close follow-up, adherence to instructions and good communication. The surgery does not replace the need to change your lifestlyle which is the cause of the obesity problem. The surgery provides the motivation to try again to change your lifestyle, it reduces the appetite and make the transition to a better lifestyle easier and doubles the amount of weight you would lose compared to doing the lifestyle change without the surgery. You will need to be on a liquid diet with protein shakes for 2 weeks before surgery to maximize weight loss and boost your nutritional status to recover better from surgery and also for the first two weeks after surgery to let the stomach heal before we introduce other foods. After the first 2 weeks we will introduce protein bars and soft foods like scrambled eggs, cottage cheese and yogurt and after the 6th week will introduce meat, fish and cooked vegetables in small amounts. Over time you should be able to eat everything in small amounts. Side effects like nausea, vomiting, heartburn or abdominal pain are not common in the practice unless you are not following in the practice. This operation requires lifetime commitment to following in our practice and communication with me. You will much less weight and experience side effects if you don?t communicate or not following in the practice. Complications are rare and in our practice is about 1/10 of the national average. However, you can develop bleeding that may require transfusion (hasn?t happened for year in the practice), you may from complications (we did not have any deaths in the practice) and infections. Infections are usually a result of breakdown in communication or not understanding or following directions correctly. They are difficult to treat, they can happen during the first 6 weeks, they may require to be in the hospital for weeks or even months, not being able to eat by mouth and you may have drains and surgeries to try and correct the issue. Other risks and complications include possible conversion to an open procedure, leaks, small bowel obstruction, blood clots, cardiac, or pulmonary complications, as technician terminal and repeater complications such as ulcers, insufficient weight loss and vitamin deficiencies. 2. Nutritional counseling. Start with one CELEBRATE REBUILD protein (buy at hospital[facility] gift shop) shake (HALF scoop in 8oz low fat unsweetened almond milk each) at 7am-9am, 1 protein bar (CELEBRATE protein bars, buy at [facility]) at 10am-12pm, one CELEBRATE REBUILD protein shake (HALF scoop in 8oz low fat unsweetened almond milk each) at 1pm-3pm, one protein bar at 4pm-6pm, dinner at 7pm (8 forks of protein and 8 forks of salad/vegetables) AND one more protein bar after dinner at 9pm-11pm. So you do 2 protein shakes, 3 protein bars and one meal per day. Meal to include lean meat (beef, fish, pork, turkey, chicken), or mohawk yogurt, or egg whites, or beans with a salad with olive oil and fruits (berries, pears, apples, kiwi). Avoid salt, breads, potatoes, rice, pasta, desserts. 3. Each shake would be drunk slowly, like coffee in a period of 2 hours. 4. Cut each bar in 4 pieces and eat each piece in 30min ?to make each bar last 2 hours. 5. I emphasized the importance of measuring accurately the food portion and measure it when serving the food in plate 6. The meal portions include 10 full-size forks of meat and 10 full-size forks of salad. You always eat the meat portion but you can replace up to 5 forks for salad/vegetables with rice, potatoes or pasta, or a fruit ?if you like. The less you do it the better weight loss will be. 7. One full-size fork is what it can be scooped on the fork without falling aside and not what can be bit with the fork. Use regular forks like those you find in a typical restaurant. 8.? Please buy the body composition scale we discussed and send me weight measurements as soon as possible and then once a week. Always include your diet and exercise plan. 9. Start treadmill with an incline of 2.0 and speed of 3.0. Increase incline by 1 every 3 min to a max incline of 8.0, stay 3min at 8.0 and then return to 2.0 and repeat same steps until calorie goal is met. Goal is to burn 2000 calories per week on exercise, which means either 300 calories daily, or 400 calories 5 days per week, or 500 calories 4 days per week, or 650 calories 3 days per week. 10.?It is important of avoiding and for at least 18 months postoperatively and has been discussed at the infosession. ?11. Goal is to lose at least 1.5-2lbs per week ?12. Goal to lose 10% of your weight before surgery, which is about 22lbs. Ultimate weight goal: 197lbs before surgery 13. Please follow the diet plan exactly without any change. If you don't like something about the plan or you feel hungry you need to communicate with me so I can help you revise the plan. You should not change the plan yourself. 14. To be scheduled for EGD due to the history of sleeve gastrectomy and anemia. The possibility of biopsies was discussed. Patient needs to avoid use of NSAIDs and aspirin for 1 week prior to EGD. You must be on liquids only the day before your endoscopy. Risks of perforation and bleeding was discussed with the patient. This will be an outpatient procedure with IV sedation. Orders: Orders Hemoglobin A1c Today E66.09 - Other obesity due to excess calories, I10 - Essential (primary) hypertension, K21.9 - Gastro-esophageal reflux disease without esophagitis, Z68.34 - Body mass index [BMI] 34.0-34.9, adult Complete Blood Count Auto Diff Today E66.09 - Other obesity due to excess calories, I10 - Essential (primary) hypertension, K21.9 - Gastro-esophageal reflux disease without esophagitis, Z68.34 - Body mass index [BMI] 34.0-34.9, adult IRON PROFILE Today E66.09 - Other obesity due to excess calories, I10 - Essential (primary) hypertension, K21.9 - Gastro-esophageal reflux disease without esophagitis, Z68.34 - Body mass index [BMI] 34.0-34.9, adult Comprehensive Met. Panel Today E66.09 - Other obesity due to excess calories, I10 - Essential (primary) hypertension, K21.9 - Gastro-esophageal reflux disease without esophagitis, Z68.34 - Body mass index [BMI] 34.0-34.9, adult Vitamin B12 and Folate Today E66.09 - Other obesity due to excess calories, I10 - Essential (primary) hypertension, K21.9 - Gastro-esophageal reflux disease without esophagitis, Z68.34 - Body mass index [BMI] 34.0-34.9, adult Zinc Today E66.09 - Other obesity due to excess calories, I10 - Essential (primary) hypertension, K21.9 - Gastro-esophageal reflux disease without esophagitis, Z68.34 - Body mass index [BMI] 34.0-34.9, adult C Reactive Protein Today E66.09 - Other obesity due to excess calories, I10 - Essential (primary) hypertension, K21.9 - Gastro-esophageal reflux disease without esophagitis, Z68.34 - Body mass index [BMI] 34.0-34.9, adult Vitamin B1 Today E66.09 - Other obesity due to excess calories, I10 - Essential (primary) hypertension, K21.9 - Gastro-esophageal reflux disease without esophagitis, Z68.34 - Body mass index [BMI] 34.0-34.9, adult Ferritin Today E66.09 - Other obesity due to excess calories, I10 - Essential (primary) hypertension, K21.9 - Gastro-esophageal reflux disease without esophagitis, Z68.34 - Body mass index [BMI] 34.0-34.9, adult US abdomen comp w elastography Today E66.09 - Other obesity due to excess calories, I10 - Essential (primary) hypertension, K21.9 - Gastro-esophageal reflux disease without esophagitis, Z68.34 - Body mass index [BMI] 34.0-34.9, adult Insulin Today E66.09 - Other obesity due to excess calories, I10 - Essential (primary) hypertension, K21.9 - Gastro-esophageal reflux disease without esophagitis, Z68.34 - Body mass index [BMI] 34.0-34.9, adult H Pylori Breath Test Today E66.09 - Other obesity due to excess calories, I10 - Essential (primary) hypertension, K21.9 - Gastro-esophageal reflux disease without esophagitis, Z68.34 - Body mass index [BMI] 34.0-34.9, adult Lipid Panel Today E66.09 - Other obesity due to excess calories, I10 - Essential (primary) hypertension, K21.9 - Gastro-esophageal reflux disease without esophagitis, Z68.34 - Body mass index [BMI] 34.0-34.9, adult Vitamin A Today E66.09 - Other obesity due to excess calories, I10 - Essential (primary) hypertension, K21.9 - Gastro-esophageal reflux disease without esophagitis, Z68.34 - Body mass index [BMI] 34.0-34.9, adult TSH reflex Free T4 Today E66.09 - Other obesity due to excess calories, I10 - Essential (primary) hypertension, K21.9 - Gastro-esophageal reflux disease without esophagitis, Z68.34 - Body mass index [BMI] 34.0-34.9, adult Vitamin D 25-OH Total Today E66.09 - Other obesity due to excess calories, I10 - Essential (primary) hypertension, K21.9 - Gastro-esophageal reflux disease without esophagitis, Z68.34 - Body mass index [BMI] 34.0-34.9, adult XR chest 2V Today E66.09 - Other obesity due to excess calories, I10 - Essential (primary) hypertension, K21.9 - Gastro-esophageal reflux disease without esophagitis, Z68.34 - Body mass index [BMI] 34.0-34.9, adult ECG 12 lead EKG Today E66.09 - Other obesity due to excess calories, I10 - Essential (primary) hypertension, K21.9 - Gastro-esophageal reflux disease without esophagitis, Z68.34 - Body mass index [BMI] 34.0-34.9, adult FL upper GI w air Today E66.09 - Other obesity due to excess calories, I10 - Essential (primary) hypertension, K21.9 - Gastro-esophageal reflux disease without esophagitis, Z68.34 - Body mass index [BMI] 34.0-34.9, adult Referrals Behavioral Health Referral E66.09 - Other obesity due to excess calories, I10 - Essential (primary) hypertension, K21.9 - Gastro-esophageal reflux disease without esophagitis, Z68.34 - Body mass index [BMI] 34.0-34.9, adult Nutrition/Dietitian Referral E66.09 - Other obesity due to excess calories, I10 - Essential (primary) hypertension, K21.9 - Gastro-esophageal reflux disease without esophagitis, Z68.34 - Body mass index [BMI] 34.0-34.9, adult
[2024-09-03 08:08] VITALS: BMI 37.6
== END 2024-09-03 08:47 | disposition home or self-care (01) ==
LOC: HO.HBS 07:57
PROVIDERS: PCP Internal Medicine; Visit Provider Surgery
DX: E66.812 Obesity, class 2 (principal); Z68.37 Body mass index [BMI] 37.0-37.9, adult
CPT/HCPCS: 98010

== ENCOUNTER → 2024-09-03 07:57 | Outpatient (BNVA) | payer OTHER, SELFPAY | PROVIDERS: PCP Internal Medicine; Visit Provider Surgery ==

== ENCOUNTER → 2024-09-22 15:48 | Outpatient (REF) | payer OTHER, SELFPAY ==
--- NOTE | ~2024-09-22 | XR_ITS ---
EXAMINATION: XR CHEST CLINICAL INFORMATION: E66.09 - Other obesity due to excess calories COMPARISON: September 10, 2023. TECHNIQUE: 2 views of the chest were obtained. FINDINGS: Mild prominence of the pulmonary interstitium. No consolidation, pleural effusion or pneumothorax. Cardiomediastinal silhouette size is normal. S-shaped curvature of the thoracolumbar spine.. XR/XR chest 2V IMPRESSION: Concerning acute small airway inflammatory process. Scoliosis. Electronically signed by: Olivier Martinez MD 09/23/2024 07:19 AM EDT
--- NOTE | 2024-09-22 15:54 | ECG_ITS ---
Test Reason : OBESITY Blood Pressure : */* mmHG Vent. Rate : 72 BPM Atrial Rate : 72 BPM P-R Int : 120 ms QRS Dur : 98 ms QT Int : 396 ms P-R-T Axes : 8 -10 -25 degrees QTcB Int : 433 ms Normal sinus rhythm Nonspecific T wave abnormality Abnormal ECG When compared with ECG of 27-Oct-2011 15:36, No significant changes seen Referred By: Yohan Mcdowell Electronically Signed By: GRACIELA KELLEY MD
== END ==
LOC: HO.CARD 15:48
PROVIDERS: PCP Internal Medicine; Visit Provider Surgery
DX: I10 Essential (primary) hypertension (principal); E66.09 Other obesity due to excess calories; Z68.34 Body mass index [BMI] 34.0-34.9, adult; K21.9 Gastro-esophageal reflux disease without esophagitis
CPT/HCPCS: 71046; 93005

== ENCOUNTER → 2024-09-22 15:54 | Outpatient (BNV) | payer OTHER, SELFPAY | PROVIDERS: PCP Internal Medicine; Visit Provider Internal Medicine Cardiovascular Disease | DX: R94.31 Abnormal electrocardiogram [ECG] [EKG] (principal); E66.9 Obesity, unspecified | CPT/HCPCS: 93010 ==

== ENCOUNTER → 2024-09-22 16:00 | Outpatient (BNV) | payer OTHER, SELFPAY | PROVIDERS: PCP Internal Medicine; Visit Provider Radiology Diagnostic Radiology | DX: Z01.818 Encounter for other preprocedural examination (principal) | CPT/HCPCS: 71046 ==

== ENCOUNTER 2024-09-24 12:16 | Outpatient (AMB) | payer OTHER, SELFPAY ==
--- NOTE | 2024-09-24 12:10 | MHC.WMTHER ---
Intake Intake Visit Reasons: TV BH Intake Allergies No Known Allergies Allergy (Verified 09/03/24 07:58) [facility] Medical History (Updated 09/25/24 @ 15:58 by Yohan Mcdowell MD) GERD (gastroesophageal reflux disease) Family history of thyroid cancer Multinodular goiter Vitamin D deficiency Vertigo Asthma Obesity Hypovitaminosis D Depression Bronchiolitis Surgical History Hx of mammogram History of thyroid surgery History of loop electrical excision procedure (LEEP) Hx of tubal ligation Hx of cholecystectomy Family History (Updated 08/26/24 @ 09:35 by SARINA Johnson) Father Type 2 diabetes mellitus Mother Diabetes Daughter Thyroid cancer Maternal Aunt Liver cancer Paternal Aunt Breast cancer Social History Housing: House Alcohol intake: current Alcohol intake frequency: holidays/special occasions only Alcohol type: other Patient Tobacco Use Status: Never used Tobacco e-Cigarette/Vaping Use: Never Used Second Hand Smoke Exposure: No service: No Current occupational status: employed Current occupational exposures/hazards: No Cognitive needs: No Hearing needs: No Vision needs: Yes Female Reproductive History Menstrual Age of Menarche: 14 Behavioral Health Assessment Weight Management Therapy Therapy Notes Details The patient is a 48-year-old female presenting for her initial visit to complete a behavioral health (BH) assessment as part of the surgical weight loss program. The patient reports that her primary care physician, Dr. Ximena Christensen, referred her to the program due to ongoing difficulties with weight loss and worsening health concerns related to obesity. She has tried multiple diets in the past, but has struggled to maintain progress, often reverting to old habits. The patient now feels that she requires professional assistance to make a lifelong commitment to healthier living. Her goals include becoming healthier and more active, as well as improving her relationship with food and adopting sustainable eating habits. Presenting Concerns Referral Source WMP-Provider. Dr. Glez Reason for referral Completion of behavioral health assessment as part of process for weight-loss surgery. Precipitating Event Obesity. Living Situation Current Living Situation Own Comments PT lives with ehr , her 3 girls, her granddaughter and her [id number] Food/Weight/Diet History/Relationship with food Pt reports she tends to eat out a lot as she works and by the end of the day ordering is easier. Social History Family history and relationship PT is , been together for about 15 years, 4 years ago. PT has 4 children from previous marriage and has 2 from his previous relationship. Parents are live and . PT has a total of 3 siblings. On her father's side she has 1 brother, and on mothers side there are 2 siblings, 1 of them is from both mother and father. PT reports she's not close to her family but they have good relationships. 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 Youngest is 19, lives at home. PT also support her oldest daughter caring for her 1 y/o granddaughter who. Developmental history and status PT reports she struggled with reading and writing. Never formally dx with dyslexia but has a problem putting words together/ Social support , daughter. Community support PCP. Pentecostalism/Spirituality Raised as Yazidism. Currently taking some bible studies with Jehovah witness. Cultural/Ethnic information . Born in [place]. Parents born here in the but grandparents were born in [place]. Legal Involvement and History Current or historical involvement with the legal system? None reported. Education Highest grade completed [employer]. Preferred learning style Written and Visual Currently enrolled in educational program? Yes Interested in further educational program? 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 ) Wants help to find employment? No Mental Health and Addiction Treatment Psychiatric history Hx of trauma in childhood. Questionnaires PHQ-9 Over the last 2 weeks, how often have you been bothered by any of the following problems? 1. Little interest or pleasure in doing things: more than half the days 2. Feeling down, depressed, or hopeless: several days 3. Trouble falling or staying asleep, or sleeping too much: more than half the days 4. Feeling tired or having little energy: more than half the days 5. Poor appetite or overeating: nearly every day 6. Feeling bad about yourself - or that you are a failure or have let yourself or your family down: nearly every day 7. Trouble concentrating on things, such as reading the newspaper or watching television: nearly every day 8. Moving or speaking so slowly that other people could have noticed. Or the opposite - being so fidgety or restless that you have been moving around a lot more than usual: nearly every day 9. Thoughts that you would be better off or of hurting yourself in some way: not at all Total score: 19 Depression Screening Interpretation: Positive (From new PT pack - New one will be administered at next visit.) Depression Screening Done: Yes Source: Developed by Drs. Wilmer Jackson, Karolyn Root, Morales Renee and colleagues, with an educational loida from [employer]. Binge Eating Scale Group 1 A. I don't feel self-conscious about my wt. or body size when I'm with others. B. I feel concerned about how I look to others, but it normally does not make me fell disappointed with myself C. I do get self-conscious about my appearance and wt. which makes me feel disappointed in myself. D. I feel very self-conscious about my wt. and frequently I feel intense shame and disgust for myself. I try to avoid social contacts because of my self-consciousness. Response Group 1: B Group 2 A. I don't have any difficulty eating slowly in the proper manner. B. Although I seem to gobble down foods, I don't end up feeling stuffed because of eating to much. C. At times, I tend to eat quickly and then, I feel uncomfortably full afterwards. D. I have the habit of bolting down my food, without really chewing it. When this happens I usually feel uncomfortably stuffed because I've eaten to much. Response Group 2: C Group 3 A. I feel capable to control my eating urges when I want to. B. I feel like I have failed to control my eating more than the average person. C. I feel utterly helpless when it comes to feeling in control of my eating urges. D. Because I feel so helpless about controlling my eating I have become very desperate about trying to get control. Response Group 3: B Group 4 A. I don't have the habit of eating when I'm bored. B. I sometimes eat when I'm bored, but often I'm able to get busy and get my mind off food. C. I have a regular habit of eating when I'm bored, but occasionally, I can use some other activity to get my mind off eating. D. I have a strong habit of eating when I'm bored. Nothing seems to help me breath the habit. Response Group 4: C Group 5 A. I'm usually physically hungry when I eat something. B. Occasionally, I eat something on impulse even though I really am not hungry. C. I have the regular habit of eating foods, that I might not really enjoy, to satisfy a hungry feeling even though physically, I don't need the food. D. Although I'm not physically hungry, I get a hungry feeling in my mouth that only seems to be satisfied when I eat a food, like sandwich, that fills my mouth. Sometimes, when I eat the food to satisfy my mouth hunger, I then spit the food out so I won't gain weight. Response Group 5: B Group 6 A. I don't feel any guilt or self-hate after I overeat. B. After I overeat, occasionally I feel guilt or self-hate. C. Almost all the time I experience strong guilt or self-hate after I overeat. Response Group 6: B Group 7 A. I don't lose total control of my eating when dieting even after periods when I overeat. B. Sometimes when I eat a forbidden food on a diet, I feel like I blew it and eat even more. C. Frequently, I have the habit of saying to myself, I've blown it now, why not go all the way, when I overeat on a diet. When that happens I eat more. D. I have a regular habit of starting a strict diets for myself but I break the diets by going on an eating binge. My life seems to be either a feast or famine. Response Group 7: B Group 8 A. I rarely eat so much food that I feel uncomfortably stuffed afterwards. B. Usually about once a month, I each such a quantity of food, I end up feeling very stuffed. C. I have regular periods during the month when I eat large amounts of food, either at mealtime or at snacks. D. I eat so much food that I regularly feel quite uncomfortable after eating and sometimes a bit nauseous. Response Group 8: C Group 9 A. My level of calorie intake does not go up very high or go down very low on a regular basis. B. Sometimes after I overeat, I will try to reduce my caloric intake to almost nothing to compensate for the excess calories I've eaten. C. I have a regular habit of overeating during the night. It seems that my routine is not to be hungry in the morning but overeat in the evening. D. In my adult years, I have had week-long periods where I practically starve myself. This follows periods when I overeat. It seems I live a life of either feast or famine. Response Group 9: C Group 10 A. I usually am able to stop eating when I want to. I know when enough is enough. B. Every so often, I experience a compulsion to eat which I can't seem to control. C. Frequently, I experience strong urges to eat which I seem unable to control, but at other times I can control my eating urges. D. I feel incapable of controlling urges to eat. I have a fear of not being able to stop eating voluntarily. Response Group 10: A Group 11 A. I don't have any problem stopping eating when I feel full. B. I usually can stop eating when I feel full but occasionally overeat leaving me feeling uncomfortably stuffed. C. I have a problem stopping eating once I start and usually I feel uncomfortably stuffed after I eat a meal. D. Because I have a problem not being able to stop eating when I want, I sometimes have to induce vomiting to relieve my stuffed feeling. Response Group 11: B Group 12 A. I seem to eat just as much when I'm with others, Family social gatherings as when I'm by myself. B. Sometimes, when I'm with other persons, I don't eat as much as I want to eat because I'm self-conscious about my eating. C. Frequently, I eat only a small amount of food when others are present, because I'm very embarrassed about my eating. D. I feel so ashamed about overeating that I pick times to overeat when I know no one will see me. I feel like a closet eater. Response Group 12: B Group 13 A. I eat three meals a day with only an occasional between meal snack. B. I eat 3 meals a day, but I also normally snack between meals. C. When I am snacking heavily, I get in the habit of skipping regular meals. D. There are regular periods when I seem to be continually eating, with no planned meals. Response Group 13: C Group 14 A. I don't think much about trying to control unwanted eating urges. B. At least some of the time, I feel my thoughts are pre-occupied with trying to control my eating urges. C. I feel that frequently I spend much time thinking about how much I ate or about trying not to eat anymore. D. It seems to me that most of my waking hours are pre-occupied by thoughts about eating or not eating. I feel like I'm constantly struggling not to eat. Response Group 14: C Group 15 A. I don't think about food a great deal. B. I have strong craving for food but they last only for brief periods of time. C. I have days when I can't seem to think about anything else but food. D. Most of my days seem to be pre-occupied with thoughts about food. I feel like I live to eat. Response Group 15: B Group 16 A. I usually know whether or not I'm physically hungry. I take the right portion of food to satisfy me. B. Occasionally, I feel uncertain about knowing whether or not I'm physically hungry. A these times it's hard to know how much food I should take to satisfy me. C. Even though I might know how many calories I should eat, I don't have any idea what is a normal amount of food for me. Response Group 16: A Binge Eating Score: 20 Score less than 17 Minimal Risk Score between 18-26 Moderate Risk Score between 27-46 High Risk Assessment & Plan Assessment & Plan (1) Anxiety: Code(s): F41.9 - Anxiety disorder, unspecified Plan The patient has not been cleared yet and is scheduled to return in approximately two weeks to continue the assessment. The PHQ-9 will be administered again during the next visit, prior to completing the assessment. Next appointment: 10/06/2024 at 12:00 PM, via Telehealth (video). Telehealth Telehealth Telehealth Platform: [facility] Location of provider rendering services: practice address Location of patient: other (Work, [place], [place]) Patient Identification confirmed using: Name, : Yes Telehealth method: video Patient verbally consented to treatment: Yes Patient verbally consented to billing insurance company: Yes Patient informed of any privacy concerns related to visit: Yes Minutes spent on Phone/Video with Pt.: 55 Coding Level of Care Code New Pt Tele Psy Diag Eval (91960) Patient Type New Diagnoses Anxiety F41.9 Time Spent (min) 55
== END 2024-09-24 13:13 | disposition home or self-care (01) ==
LOC: HO.HBST 12:16
PROVIDERS: PCP Internal Medicine; Visit Provider Counselor Mental Health
DX: F41.9 Anxiety disorder, unspecified (principal)
CPT/HCPCS: 90791

== ENCOUNTER 2024-10-02 10:32 | Outpatient (REF) | payer OTHER, SELFPAY ==
[2024-10-02 10:48] LABS: MANUAL DIFF FLAG NO
[2024-10-02 11:15] LABS: Basophils Absolute Auto 0.1 X10*3/uL (0.0-0.2); Basophils Percent Auto 1.2 % (0-2); Eosinophils Absolute Auto 0.8 X10*3/uL (0.0-0.4); Eosinophils Percent Auto 10.3 % (0-4); Hematocrit 43.4 % (37.0-47.0); Hemoglobin 14.2 g/dl (12.0-16.0); Imm Gran Abs Auto 0.01 X10*3/uL (0.00-0.03); Imm Gran Pct Auto 0.1 % (0.0-0.4); Lymphocytes Absolute Auto 1.9 X10*3/uL (1.2-4.9); Lymphocytes Percent Auto 24.8 % (20-40); Mean Corpuscular HGB Conc 32.7 g/dl (31.0-35.0); Mean Corpuscular Hemoglobin 26.1 pg (27.0-33.0); Mean Corpuscular Volume 79.6 fL (80.0-98.0); Mean Platelet Volume 11.5 fL (9.4-12.3); Monocytes Absolute Auto 0.4 X10*3/uL (0.1-1.2); Neutrophils Absolute Auto 4.4 x10*3/uL (2.0-8.3); Neutrophils Percent Auto 58.6 % (45-73); Platelet Count 287 X10*3/uL (160-400); Red Blood Count 5.45 X10*6/uL (4.20-5.50); White Blood Count 7.5 X10*3/uL (4.8-10.8)
[2024-10-02 11:25] LABS: Estimated Average Glucose 140 mg/dL; Hemoglobin A1C 180.1969 umol/L; Hemoglobin A1c % 6.5 % (<6.0); Total Hemoglobin (HGBA1C) 3764.3669 umol/L
[2024-10-02 11:59] LABS: Alanine Aminotransferase 33 U/L (0-31); Albumin Level 4.1 g/dL (3.5-5.0); Alkaline Phosphatase 84 U/L (39-117); Anion Gap 10 (12-20); Aspartate Amino Transferase 26 U/L (5-31); Bilirubin Total 0.5 mg/dL (0.0-1.0); Blood Urea Nitrogen 12 mg/dL (9-16); C Reactive Protein 1.54 mg/dL (< or = 0.50); Calcium 9.2 mg/dL (8.4-10.2); Carbon Dioxide 23 mmol/L (22-29); Chloride 108 mmol/L (96-108); Cholesterol 193 mg/dL (<200); Estimated Glomerular Filt Rate > 60; Glucose Random 119 mg/dL (60-115); HDL Cholesterol 38 mg/dL (>40); Iron 93 mcg/dL (30-160); LDL Cholesterol Calculated 121 mg/dL (<100); Percent Iron Saturation 32 % (15-50); Potassium 4.1 mmol/L (3.3-5.1); Sodium 137 mmol/L (135-145); Total Iron Binding Capacity 294 mcg/dL (228-428); Total Protein 7.6 g/dL (6.5-8.0); Triglycerides 171 mg/dL (<150); Unsaturated Iron Binding 201 ug/dL
[2024-10-02 12:22] LABS: Folate 10.7 ng/mL (> or = 4.0); Vitamin B12 556 pg/mL (200-900)
[2024-10-02 12:24] LABS: Ferritin 121 ng/mL (10-250); TSH reflex Free T4 1.14 uIU/mL (0.32-4.0); Vitamin D 25-OH Total 27.7 ng/mL (>30)
[2024-10-02 12:26] LABS: Insulin 20 uU/mL (2-29)
[2024-10-05 20:32] LABS: Zinc 78 mcg/dL (60-130)
[2024-10-06 14:49] LABS: Vitamin A 49 mcg/dL (38-98)
[2024-10-13 15:48] LABS: Vitamin B1 11 nmol/L (8-30)
== END 2024-10-02 10:33 | disposition home or self-care (01) ==
LOC: HO.LAB 10:32
PROVIDERS: PCP Internal Medicine; Visit Provider Surgery
DX: I10 Essential (primary) hypertension (principal); E66.09 Other obesity due to excess calories; Z68.34 Body mass index [BMI] 34.0-34.9, adult; K21.9 Gastro-esophageal reflux disease without esophagitis; Z13.1 Encounter for screening for diabetes mellitus
CPT/HCPCS: 36415; 80053; 80061; 82306; 82607; 82728; 82746; 83036; 83525; 83540; 84425; 84443; 84590; 84630; 85025; 86140

== ENCOUNTER 2024-10-06 12:00 | Outpatient (AMB) | payer OTHER, SELFPAY ==
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
== END 2024-10-06 13:51 | disposition home or self-care (01) ==
LOC: HO.HBST 12:13
PROVIDERS: PCP Internal Medicine; Visit Provider Counselor Mental Health
DX: F43.23 Adjustment disorder with mixed anxiety and depressed mood (principal)
CPT/HCPCS: 90837

== ENCOUNTER → 2024-10-06 12:00 | Outpatient (BNVA) | payer OTHER, SELFPAY | PROVIDERS: PCP Internal Medicine; Visit Provider Counselor Mental Health ==

== ENCOUNTER 2024-10-29 13:18 | Outpatient (AMB) | payer OTHER, SELFPAY ==
--- NOTE | 2024-10-29 12:05 | A.OFFWM_ITS ---
Intake Intake Visit Reasons: VIDEO BH F/U Allergies No Known Allergies Allergy (Verified 09/03/24 07:58) PFS Medical History (Updated 09/25/24 @ 15:58 by Yohan Mcdowell MD) GERD (gastroesophageal reflux disease) Family history of thyroid cancer Multinodular goiter Vitamin D deficiency Vertigo Asthma Obesity Hypovitaminosis D Depression Bronchiolitis Surgical History Hx of mammogram History of thyroid surgery History of loop electrical excision procedure (LEEP) Hx of tubal ligation Hx of cholecystectomy Family History (Updated 08/26/24 @ 09:35 by SARINA Johnson) Father Type 2 diabetes mellitus Mother Diabetes Daughter Thyroid cancer Maternal Aunt Liver cancer Paternal Aunt Breast cancer Social History Housing: House Alcohol intake: current Alcohol intake frequency: holidays/special occasions only Alcohol type: other Patient Tobacco Use Status: Never used Tobacco e-Cigarette/Vaping Use: Never Used Second Hand Smoke Exposure: No service: No Current occupational status: employed Current occupational exposures/hazards: No Cognitive needs: No Hearing needs: No Vision needs: Yes Female Reproductive History Menstrual Age of Menarche: 14 Behavioral Health Assessment Weight Management Therapy Therapy Notes Details Subjective: Patient reports consistent adherence to her meal plan and acknowledges that she is still working on building discipline around regular exercise. She noted having to cancel a recent appointment, which may delay her insurance submission for surgery, but she expressed acceptance and is not overly concerned by the delay. Patient reports noticeable progress in her mindset and overall attitude since the last visit, sharing that these changes have had a positive impact on her work and general outlook. Objective: Patient presented for a follow-up visit via Telehealth. The session focused on processing current functioning, progress, and ongoing needs. CBT (Cognitive Behavioral Therapy) and CPT (Cognitive Processing Therapy) techniques were utilized. We explored patterns of negative self-talk and self-sabotage, reflected on various scenarios, and discussed alternative, adaptive responses. Cognitive reframing and restructuring strategies were applied throughout the session. Assessment / Clinical Response: * Mental Status: Within normal limits * Risk: No suicidal ideation, self-harm, or safety concerns reported or observed Patient was actively engaged, demonstrated insight, and responded well to therapeutic interventions. Progress is evident in her mindset and behavioral consistency. Food/Weight/Diet Expectations of change Initial goal to lose 10% of her weight before surgery, which is about 22 lbs. Ultimate weight goal: 197 lbs before surgery PT started the program on 09/03/24 at 219Lbs, and the most recent weight as of 10/02/2024 was 212Lbs. Weight as of 10/23/24: 209 lbs PT is implementing the following: Current meal plan: 2 protein shakes, 2-3 protein bars, and one meal per day Exercise plan: treadmill scale: Yes. Communication with Provider: Yes, on Saturdays. Assessment & Plan Assessment & Plan (1) Adjustment disorder with mixed anxiety and depressed mood: Code(s): F43.23 - Adjustment disorder with mixed anxiety and depressed mood Plan Patient remains cleared from a behavioral health standpoint for bariatric surgery. She will follow up in one month for continued support and monitoring. Next Appointment: November 26, 2024, at 12:00 PM (Telehealth) Telehealth Telehealth Telehealth Platform: [facility] Location of provider rendering services: other Location of patient: address on file Patient Identification confirmed using: Name, : Yes Telehealth method: video Patient verbally consented to treatment: Yes Patient verbally consented to billing insurance company: Yes Patient informed of any privacy concerns related to visit: Yes Minutes spent on Phone/Video with Pt.: 55 Coding Level of Care Code Established Pt Tele Psytx >53 mins ([id number]) Patient Type Established Diagnoses Adjustment disorder with mixed anxiety and depressed mood F43.23 Time Spent (min) 55
== END 2024-10-29 13:18 | disposition home or self-care (01) ==
LOC: HO.HBST 13:18
PROVIDERS: PCP Internal Medicine; Visit Provider Counselor Mental Health
DX: F43.23 Adjustment disorder with mixed anxiety and depressed mood (principal)
CPT/HCPCS: 90837

== ENCOUNTER 2024-11-11 08:16 | Day surgery (SDC) | payer OTHER, SELFPAY ==
[2024-11-09 10:50] VITALS: BMI 37.6
--- NOTE | 2024-11-09 14:35 | P.CONAN_ITS ---
Documented by User: Dinorah Mays NP 11/09/24 14:36 HPI - Anesthesia Eval Consult details Narrative: 48yo F for Upper Endoscopy PMFSH Active Problems Active Problems: All Active Problems Abnormal EKG (Acute) GERD (gastroesophageal reflux disease) (Acute) BMI 37.0-37.9, adult (Acute) Impaired glucose tolerance (Acute) Class 2 obesity with body mass index (BMI) of 37.0 to 37.9 in adult (Acute) Elevated fasting glucose (Acute) Low mean corpuscular volume (MCV) (Acute) Adult general medical exam (Acute) Hypertension (Acute) Chalazion of left upper eyelid (Acute) Elevated blood pressure reading (Acute) Anxiety (Acute) Screening for colon cancer (Acute) IUD check up (Acute) Encounter for IUD insertion (Acute) Myoma (Acute) Complex ovarian cyst (Acute) Abnormal cervix finding (Acute) Menometrorrhagia (Acute) Well woman exam (Acute) Menorrhagia (Acute) Family history of thyroid cancer (Acute) Multinodular goiter (Acute) Vitamin D deficiency (Acute) Vertigo (Acute) Asthma (Acute) Obesity (Acute) Hypovitaminosis D (Acute) Depression (Acute) Bronchiolitis (Acute) Past Medical History Medical History HTN (hypertension) GERD (gastroesophageal reflux disease) Family history of thyroid cancer Multinodular goiter Vitamin D deficiency Vertigo Asthma Obesity Hypovitaminosis D Depression Bronchiolitis Family History Family History Father Type 2 diabetes mellitus Mother Diabetes Daughter Thyroid cancer Maternal Aunt Liver cancer Paternal Aunt Breast cancer Surgical History Surgical History Hx of mammogram History of thyroid surgery History of loop electrical excision procedure (LEEP) Hx of tubal ligation Hx of cholecystectomy Social History Social History Housing: House Are you a primary acute care clinical nurse specialist to a significant other at home: Yes (daughter with Down's syndrome-supportive dad) Do you presently have visiting nurse or other home services: No Alcohol intake: current Alcohol intake frequency: holidays/special occasions only Alcohol type: other Patient Tobacco Use Status: Former Tobacco user Tobacco use type: Cigarette e-Cigarette/Vaping Use: Never Used Second Hand Smoke Exposure: No Use of substances other than those prescribed or required for medical reasons: No Have you been hit, kicked, punched, or otherwise hurt by someone within the past year? If so, by whom?: No Are you DNR?: No Advance Directives: No Advance Directives Information Provided: Yes Advance Directives on File: No Patient : No FDLMP: 10/26/2024 : No Poor oral hygiene: No service: No Current occupational status: employed Current occupational exposures/hazards: No Cognitive needs: No Hearing needs: No Vision needs: Yes Meds Allergies Allergy/AdvReac Type Severity Reaction Status Date / Time No Known Allergies Allergy Verified 11/11/24 08:29 Home Medications ?Medication ?Instructions ?Recorded ?Confirmed ?Last Taken ?Type levonorgestrel 21 mcg/24 hr (up to intrauterine 08/27/21 09/03/24 Unknown History 8 years) 52 mg intrauterine device (Mirena) Exam Height,Weight and Vital Signs: Height 5 ft 4 in Weight 99.337 kg Assessment and Plan Assessment Anesthesia Assessment: Chart Reviewed Documented by User: Dayan Shrestha MD 11/11/24 09:25 [facility] Past Medical History Medical History HTN (hypertension) GERD (gastroesophageal reflux disease) Family history of thyroid cancer Multinodular goiter Vitamin D deficiency Vertigo Asthma Obesity Hypovitaminosis D Depression Bronchiolitis Family History Family History Father Type 2 diabetes mellitus Mother Diabetes Daughter Thyroid cancer Maternal Aunt Liver cancer Paternal Aunt Breast cancer Surgical History Surgical History Hx of mammogram History of thyroid surgery History of loop electrical excision procedure (LEEP) Hx of tubal ligation Hx of cholecystectomy History of Problems with Anesthesia: No Social History Social History Housing: House Are you a primary acute care clinical nurse specialist to a significant other at home: Yes (daughter with Down's syndrome-supportive dad) Do you presently have visiting nurse or other home services: No Alcohol intake: current Alcohol intake frequency: holidays/special occasions only Alcohol type: other Patient Tobacco Use Status: Former Tobacco user Tobacco use type: Cigarette e-Cigarette/Vaping Use: Never Used Second Hand Smoke Exposure: No Use of substances other than those prescribed or required for medical reasons: No Have you been hit, kicked, punched, or otherwise hurt by someone within the past year? If so, by whom?: No Are you DNR?: No Advance Directives: No Advance Directives Information Provided: Yes Advance Directives on File: No Patient : No FDLMP: 10/26/2024 : No Poor oral hygiene: No service: No Current occupational status: employed Current occupational exposures/hazards: No Cognitive needs: No Hearing needs: No Vision needs: Yes Meds Allergies Allergy/AdvReac Type Severity Reaction Status Date / Time No Known Allergies Allergy Verified 11/11/24 08:29 Home Medications ?Medication ?Instructions ?Recorded ?Confirmed ?Last Taken ?Type levonorgestrel 21 mcg/24 hr (up to intrauterine 08/27/21 09/03/24 Unknown History 8 years) 52 mg intrauterine device (Mirena) Exam Airway Mallampati Class: II TM Dist: >3cm Neck ROM: Full Loose/Missing/Broken Teeth: No Heart: RRR Lungs: CTA Assessment and Plan Assessment Anesthesia Assessment: Anesthesia Plan Discussed Final Anesthetic Review History of Problems with Anesthesia: No NPO: Yes ASA Class: II Final Preanesthetic Review: Meds/Allgs Chart Reviewed, Consent Obtained/Reviewed and Anes Risks/Benef Reviewed Patient Risk: Low Procedure Risk: Intermediate Anesthetic Plan Anesthetic Plan: MAC: Disposition: Standard PACU
[2024-11-09 16:25] VITALS: BMI 35.7
[2024-11-11] VITALS (7 sets, daily range): BP systolic 110–133; BP diastolic 69–83; PULSE 65–86; RESP 15–18; TEMP 35.9–36.4; O2SAT 92–99; BMI 35.7
[2024-11-11] MEDS: Albuterol Sulfate (0.083%) 2.5 MG/3 ML VIAL.NEB INHALE (08:59)
--- NOTE | 2024-11-11 09:21 | MHC.SHP ---
Pre-Procedural Eval Section A - 24 Hr Update-Section A only Date of Service: 11/11/24 The patient is an INPATIENT: No The patient has been examined within 24 hours of the surgical procedure. The History & Physical has been completed within 30 days and I have reviewed it.: No Section B - Complete if H&P > 30 days Chief Complaint: Morbid (severe) obesity due to excess calories Details of Present Illness: GERD Relevant Family History (Specify if Yes): No Relevant Social History: None Present Medications: None Medical History: No relevant PMH History of Previous Operations: No relevant previous surgery Allergies: Allergies Allergy/AdvReac Type Severity Reaction Status Date / Time No Known Allergies Allergy Verified 11/11/24 08:29 Review of Systems Sugical H&P ROS: Negative: Constitution, Cardiovascular, Respiratory, Neurological, Psychiatric, Hem-Onc, Allergic/Immunologic, Gastrointestinal, Genitourinary, Musculoskeletal, Integumentary, Endocrine and Eyes/Ears/Nose/Throat Exam Surgical H&P Exam: Normal: HEENT, Normal: Heart, Normal: Lungs, Normal: Extremities, Normal: Abdomen, Normal: Skin and Normal: Neurological Plan Diagnosis/Plan: Unchanged (EGD to assess etiology of GERD. Risks of bleeding and perforation were discussed with the patient and she is in agreement with the plan.) I have reviewed the history and physical and performed a pertinent physical examination on my patient. No changes have occurred unless specified. Time Spent With Patient Time: Total time managing care of this patient today ____ minutes.
--- NOTE | 2024-11-11 09:22 | PM.OP ---
Brief Operative Note Date of Service: 11/11/24 Pre-op diagnosis: GERD Post-op diagnosis: same (Small diaphragmatic hernia and gastritis) Procedure: PROCEDURE DATE: 11/11/2024 PREOPERATIVE DIAGNOSIS: GERD POSTOPERATIVE DIAGNOSIS: ?Same as above. 1) small diaphragmatic hernia, 2) gastritis PROCEDURE: [id number] with biopsies Surgeon: ?Marco A Mcdowell M.D.. Ph.D. Special Education Math Teacher: None ? Anesthesia: IV sedation Estimated blood loss: ?Minimal FINDINGS AND PROCEDURE: ? OPERATIVE INDICATIONS: ?The patient is a 48 year old female known to me who is interested in bariatric surgery. The patient has GERD. Based on this information I recommended an upper endoscopy to evaluate the patient's symptoms. Risks and complications of the surgery were discussed with the patient in advance particularly the possibility of perforation or bleeding that may require surgical intervention. The patient understood the risks and was in agreement with the plan. ? PROCEDURE: After informed consent was obtained by the patient, the patient was ?transferred to the Operating Room and was placed in the supine position.? After successful induction of IV sedation, a mouth block was inserted and the patient was placed in the left lateral decubitus position. An upper endoscopy was performed next, the oropharynx and esophagus appeared within the normal limits. There was a small diaphragmatic hernia. The z-line was smooth. Two biopsies were obtained from the distal esophagus 2-3 cm proximal to the GE junction and two additional biopsies from the GE junction. The stomach was entered and it appeared to be of normal size. There was mild gastritis at the antrum. There was no stricture or ulcer. A biopsy was obtained from the gastric fundus and two biopsies from the distal antrum. No significant bleeding was noted from any of the biopsy sites. Retroflexion of the scope confirmed the presence of a small diaphragmatic hernia. The scope was then advanced into the duodenum which appeared to be normal as well. At that point the duodenum ?and the stomach were decompressed and the scope was withdrawn from the patient's mouth. The patient extubated and was transferred in stable condition to the Recovery Room for further care. I was present and performed all steps of the procedure. There were no residents to assist with this case. Marco A Mcdowell M.D., Ph.D. Surgeon: Yohan Mcdowell MD Anesthesia: MAC Was an Special Education Math Teacher used for this Procedure?: No Estimated blood loss (mL): 0 IV fluids (mL): 400 Urine output (mL): 0 (No Hernandez to record output) Pathology: other (1) antrum x2, 2) fundus x1, 3) GE junction x2, 4) distal esophagus x2) Condition: stable Disposition: PACU
== END 2024-11-11 10:52 | disposition home or self-care (01) ==
PROVIDERS: PCP Internal Medicine; Visit Provider Surgery
PROC: 0DJ08ZZ Inspection of Upper Intestinal Tract, Via Natural or Artificial Opening Endoscopic (ICD-10-PCS; CPT 43235; principal; 2024-11-11 10:10)
DX: K21.9 Gastro-esophageal reflux disease without esophagitis (principal); E66.01 Morbid (severe) obesity due to excess calories; Z68.37 Body mass index [BMI] 37.0-37.9, adult; K29.50 Unspecified chronic gastritis without bleeding; B96.81 Helicobacter pylori [H. pylori] as the cause of diseases classified elsewhere; K44.9 Diaphragmatic hernia without obstruction or gangrene; Z80.0 Family history of malignant neoplasm of digestive organs; I10 Essential (primary) hypertension; E04.2 Nontoxic multinodular goiter; E55.9 Vitamin D deficiency, unspecified; F32.A Depression, unspecified; J45.909 Unspecified asthma, uncomplicated; J21.9 Acute bronchiolitis, unspecified; Z87.891 Personal history of nicotine dependence; Z79.51 Long term (current) use of inhaled steroids; Z79.899 Other long term (current) drug therapy
CPT/HCPCS: 43239; 88305; 88313; 88342; 94640; J2003; J2704

== ENCOUNTER → 2024-11-11 08:16 | Outpatient (BNV) | payer OTHER, SELFPAY | PROVIDERS: PCP Internal Medicine; Visit Provider Surgery | DX: K21.9 Gastro-esophageal reflux disease without esophagitis (principal); K29.70 Gastritis, unspecified, without bleeding | CPT/HCPCS: 43239 ==

== ENCOUNTER → 2024-11-16 10:54 | Outpatient (REF) | payer OTHER, SELFPAY ==
--- NOTE | 2024-11-16 10:57 | CA_ITS ---
Transthoracic Echocardiogram Patient (Last, First, Middle): Fina Montoya L Gender: Female Date of : 1975 Age: 48 Procedure Date: 11/16/2024 Procedure Type: Transthoracic Echocardiogram Location: OP Height: 162.56 cm Weight: 93.9 kg BSA: 1.98 m2 Heart Rate: bpm BP: 122 / 78 mmHg Changer Fixer: ALEX/BENNIE Referring MD: Yohan Mcdowell MD Symptoms: R94.31 - Abnormal electrocardiogram [ECG] [EKG] Study Quality: Technically Difficult, contrast ECG Rhythm: Sinus Conclusions: - The left ventricular systolic function is mildly decreased. The calculated ejection fraction is 49% by biplane method. - No obvious valvular pathology seen on this study. Findings Procedure Information Contrast agent, definity, is being given per protocol without apparent complications. Left Ventricle Normal left ventricular cavity size. There is normal left ventricular wall thickness. The left ventricular systolic function is mildly decreased. The calculated ejection fraction is 49% by biplane method. There is mild global hypokinesis. Diastolic function is normal for age. Right Ventricle Normal right ventricular cavity size and systolic function. Atria Both atria are normal in size. Aortic Valve There is a normal trileaflet aortic valve. There is no aortic valve stenosis. There is no aortic valve regurgitation. Mitral Valve The mitral valve appears normal. There is no mitral valve regurgitation. There is no mitral valve stenosis. Pulmonic Valve The pulmonic valve is likely normal. Tricuspid Valve There is trace tricuspid valve regurgitation. There is no evidence of pulmonary hypertension. Great Vessels The asc aorta is normal in size. Small plaque is seen in the sino tubular ridge. Venous The inferior vena cava is normal in size and collapses greater than 50% with inspiration. Pericardium/Pleural There is no evidence of pericardial effusion. Prior Study Comparison No prior study available for comparison. Recommendations, Care & Conclusions No obvious valvular pathology seen on this study. Measurements 2D Linear Measurements IVSd: 0.89 0.6-0.9/0.6-1.0 cm LVIDd: 5.18 3.9-5.3/4.2-5.9 cm LVIDd Index: 2.62 2.4-3.2/2.2-3.1 cm/m2 LVIDs: 4.50 2.0-3.6 cm LVPWd: 0.79 0.7-1.1 cm LA Diam: 2.90 2.7-3.8/3.0-4.0 cm LAIDs Index: 1.46 1.5-2.3 cm/m2 LV Mass: 191.34 67-162/88-224 g LV Mass Index: 96.64 43-95/49-115 g/m2 LVOT Diam: 2.10 3.0+(-)1.3 cm 2D Systolic Function EF 4C: 46.40 >55% EF 2C: 53.90 >55% EF BiP: 49.20 >55% Mitral Valve MV Pk E: 0.57 MV PK A: 0.59 MV Decel Time: 281.00 E/A: 1.00 E'Lateral: 10.90 E'Medial: 7.83 E/E' Med: 7.30 E/E' Lat: 5.30 PHT: 82.00 MVA PHT: 2.68 Decel [place]: 2.04 Aortic Valve AoV Pk Henri: 1.30 AoV Mn Henri: 1.00 AoV VTI: 0.28 AoV Pk Grad: 7.00 Aov Mn Grad: 4.00 TAWNYA Cont.VTI: 2.74 LVOT LVOT Pk Henri: 1.06 LVOT Mn Henri: 0.78 LVOT VTI: 0.22 LVOT Pk Grad: 4.00 LVOT Mn Grad: 3.00 LVOT Diam: 2.10 LVOT Area: 3.46 Diastolic Function MV Pk E: 0.57 MV Pk A: 0.59 E/A: 1.00 E'Medial: 7.83 E/E' Med: 7.30 E' Laterial: 10.90 E/E' Lat: 5.30 Right Ventricle TAPSE (mm): 21.90 TVS' Henri: 10.90 Tricuspid Valve RA Press: 3.00 Great Vessels Aorta Sinus of Valsalva: 3.20 2.0-3.[address] [place]: 2.38 1.7-3.4 cm Ao Asc: 3.20 2.1-3.4 cm Updated in Other Vendor System with Status of Final Sidney Ramos MD electronically signed on 11/16/2024 4:02:12 PM with status of Final
== END ==
LOC: HO.CARD 10:54
PROVIDERS: PCP Internal Medicine; Visit Provider Surgery
DX: R94.31 Abnormal electrocardiogram [ECG] [EKG] (principal)
CPT/HCPCS: 93306; Q9957

== ENCOUNTER → 2024-11-16 10:57 | Outpatient (BNV) | payer OTHER, SELFPAY | PROVIDERS: PCP Internal Medicine; Visit Provider Internal Medicine | DX: R94.31 Abnormal electrocardiogram [ECG] [EKG] (principal) | CPT/HCPCS: 93306 ==